=== PATIENT | female | born 1950 | race Caucasian/White ===

== ENCOUNTER 2023-07-13 10:11 | Inpatient (IN) ==
[2023-07-13 11:09] LABS: Basophils # (auto) 0.07 K/uL (0.00-0.20); Basophils % (auto) 1.3 %; Eosinophils # (auto) 0.21 K/uL (0.00-0.50); Eosinophils % (auto) 3.9 %; Hematocrit (blood only) 43.6 % (37.0-47.0); Hemoglobin 14.7 g/dl (12.0-16.0); Immature Granulocytes # (auto) 0.02 K/uL (0.01-0.20); Immature Granulocytes % (auto) 0.4 %; Lymphocytes # (auto) 1.18 K/uL (1.20-3.40); Mean Corpuscular Hemoglobin 31.3 pg (25.0-34.0); Mean Corpuscular Hgb Conc 33.7 g/dL (32.0-36.0); Mean Corpuscular Volume 92.8 fL (80.0-100.0); Mean Platelet Volume 8.9 fL (9.4-12.4); Monocytes % (auto) 11.2 %; Neutrophils # (auto) 3.29 K/uL (1.40-6.50); Neutrophils % (auto) 61.2 %; Platelet Count 249 K/uL (130-400); RDW Standard Deviation 40.8 fL (36.4-46.3); White Blood Count 5.37 K/ul (4.8-10.8)
--- NOTE | 2023-07-13 11:13 | XRay Report ---
XR chest 1V portable HISTORY: Chest pain, nonspecific COMPARISON: Chest 11/30/2017. FINDINGS: The lungs are clear. The cardiac silhouette is top normal in size. No pleural effusions. No pneumothorax. No evidence for pulmonary edema. No acute fractures. Calcifications within the aortic knob. There is an old distal right clavicle fracture noted. IMPRESSION: No acute process. ACT 112: Negative or not required by law. Electronically signed by: Fernando Rhoades M.D. 07/13/2023 11:11 AM
--- NOTE | 2023-07-13 11:22 | Emergency Department Note ---
Impression & Plan Radicular pain of left upper extremity, Hypertension, Elevated blood pressure reading, CKD (chronic kidney disease) ED Provider Note NAME: DENISE PERDOMO AGE: 73 SEX: F : 1950 ARRIVES VIA: Walk-In INFORMANT: Patient ED PROVIDER(S): Ye Clifton DO CHIEF COMPLAINT: left shoulder and arm pain HPI: Patient is a 73-year-old female with a past medical history of CKD, asthma and hypertension that presents to the ER for left neck pain which radiates down into the left shoulder and left arm. It radiates to the second and third digits on the left hand. She denies any weakness or numbness. No headache or change in vision. Pain does radiate from the shoulder to the anterior chest wall. This has all been present for the past week. It did worsen today. She was referred in by [facility]. No dysuria, urgency, or frequency. No shortness of breath. No other exacerbating or remitting factors. ADDITIONAL HISTORY OBTAINED: Per HPI Chronic Medical/Social Conditions Affecting Care: Per HPI PAST MEDICAL HISTORY:See Below PAST SURGICAL HISTORY:See Below FAMILY HISTORY:See Below SOCIAL HISTORY:See Below HOME MEDICATIONS:See Below ALLERGIES:See Below VITALS:See Below PHYSICAL EXAMINATION: GENERAL: Sitting up in bed, alert, well appearing, well nourished, no distress, non-toxic EYE EXAM: normal conjunctiva. PERRL and EOM's intact. OROPHARYNX: no exudate, no erythema, lips, buccal mucosa, and tongue normal and mucous membranes are moist NECK: supple, no nuchal rigidity, no adenopathy, no midline tenderness but paraspinal tenderness in the lower left cervical region tracking through the trapezius into the humeral head LUNGS: Clear to auscultation. Normal chest wall mechanics HEART: no murmurs, S1 normal and S2 normal ABDOMEN: abdomen soft, non-tender, normo-active bowel sounds, no masses, no rebound or guarding. BACK: Back is symmetrical on inspection and there is no deformity, no midline tenderness, no CVA tenderness. SKIN: no rashes and no bruising UPPER EXTREMITIES: Flexion-extension bilateral shoulders elbows wrist and grasp 5 out of 5 bilaterally. Pronation supination of the left upper extremity as well as abduction of the digits 5 out of 5. Radial pulse 2 out of 4. LOWER EXTREMITIES: No pitting edema. NEURO EXAM: Normal sensorium, cranial nerves II-XII intact, normal speech, no weakness of arms, no weakness of legs. No drift. Finger to nose intact. Gross sensation intact. MEDICAL DECISION MAKING: Patient is a 73-year-old female who presents ER with past medical history of asthma, and hypertension for left arm and neck pain. On exam clinically consistent with radiculopathy. Labs showed no significant leukocytosis or anemia. BMP along with LFTs bilirubin and lipase was unremarkable. Troponin was negative with symptoms that been present for greater than 8 hours not negative ACS. Neurovascular intact in the extremity. Chest x-ray was clean. Showed a normal aorta. CT of the cervical spine was unremarkable. Patient was given a dose of morphine and Toradol and steroids. She had nearly complete resolution of her pain. Pressures remain significantly elevated and continued to trend up into the low 200s. I do not feel this consistent with pain and she notes that she essentially has no pain at this time. She feels significantly better. Chest x-ray was reviewed and showed no enlarged mediastinum. She was updated bedside. Discussed with the . Patient will be monitored overnight for the significant hypertension of unclear etiology at this time. She notes she does not take any medications for it. Consults/Care Managements Discussions: Per [facility] Triage Nursing notes reviewed. Limited review of prior medical records performed Vital Signs: reviewed and remarkable for HTN Differential diagnosis: Cardiac ischemia, aortic dissection, pulmonary embolism, pneumothorax, pneumonia, pericarditis, myocarditis, esophageal rupture, GERD, cholecystitis, pancreatitis, musculoskeletal, as well as other pathologies. ER treatment provided: See below Diagnostics interpreted by me include EKG and cardiac monitoring as listed below: -Cardiac Monitoring: An order was placed for continuous cardiac monitoring. The monitor shows a rate of 72 with sinus rhythm. -ECG: Sinus rhythm rate of 70 Left axis Septal Q waves PVC QTc 434 No significant change from previous. -Laboratory studies:Interpreted by me as stated above in MDM and shown below. Imaging studies: Xrays: As interpreted by me: Portable AP upright 1 view of the chest shows no focal infiltrate CTs show: CT of the cervical spine shows no acute pathology Procedures:none Critical Care: None Past Med/Surg History Medical History (Updated 07/13/23 @ 13:56 by Ye Clifton DO) CKD (chronic kidney disease), stage III Asthma Surgical History (Updated 07/13/23 @ 13:52 by Ciara Garcia PA-C) History of colonoscopy History of tubal ligation Family History (Updated 07/13/23 @ 13:52 by Ciara Garcia PA-C) Other Cancer Social History Smoking Status: Never smoker Hx Substance Use: No Preferred Language: Kazakh Feels Safe at Home: Yes Allergies Allergies Allergy/AdvReac Type Severity Reaction Status Date / Time Penicillins Allergy Unknown CHILDHOOD Unverified 11/30/17 09:45 ALLERGY Home Meds Home Medications Medication Instructions Recorded Confirmed albuterol sulfate 90 mcg/actuation 2 puff inhalation Q4H PRN 07/13/23 07/13/23 aerosol inhaler Shortness Of Breath Or Wheezing budesonide-formoterol HFA 160 2 inh inhalation BID 07/13/23 07/13/23 mcg-4.5 mcg/actuation aerosol inhaler (Symbicort) calcium carbonate 500 mg-vitamin 1 tab PO DAILY 07/13/23 07/13/23 D3 10 mcg (400 unit) tablet (Calcium 500 + D) montelukast 10 mg tablet 10 mg PO DAILY 07/13/23 07/13/23 multivitamin 1 tab PO DAILY 07/13/23 07/13/23 Results & Data (ED) Vital Signs Vital Signs - 24 hr 07/13/23 10:16 07/13/23 10:35 07/13/23 11:00 Temperature 36.6 C Temperature Source Temporal Artery Scan Pulse Rate 72 62 Pulse Rhythm Respiratory Rate 16 15 Respiratory Effort / Characteristics Non-Labored Spontaneous Respiratory Depth Normal Respiratory Pattern Regular Blood Pressure 151/84 H 190/86 H Blood Pressure Mean 106 131 Pulse Oximetry 97 98 96 Oxygen Delivery Method Room Air Room Air Room Air Sepsis Recent Fever Within 48 Hours No Sepsis New/Unexplained Change in Mental Status No Sepsis Action Taken by Nursing No Action Required 07/13/23 11:08 07/13/23 11:57 07/13/23 12:00 Temperature Temperature Source Pulse Rate 70 54 L 61 Pulse Rhythm Regular Respiratory Rate 12 16 Respiratory Effort / Characteristics Respiratory Depth Respiratory Pattern Blood Pressure 201/93 H Blood Pressure Mean 131 Pulse Oximetry 96 97 Oxygen Delivery Method Room Air Sepsis Recent Fever Within 48 Hours Sepsis New/Unexplained Change in Mental Status Sepsis Action Taken by Nursing 07/13/23 12:20 07/13/23 12:45 07/13/23 13:01 Temperature Temperature Source Pulse Rate 60 61 66 Pulse Rhythm Respiratory Rate 12 15 17 Respiratory Effort / Characteristics Respiratory Depth Respiratory Pattern Blood Pressure 190/88 H 163/69 H 169/56 H Blood Pressure Mean 122 124 121 Pulse Oximetry 97 97 97 Oxygen Delivery Method Sepsis Recent Fever Within 48 Hours Sepsis New/Unexplained Change in Mental Status Sepsis Action Taken by Nursing 07/13/23 13:15 Temperature Temperature Source Pulse Rate 77 Pulse Rhythm Respiratory Rate 17 Respiratory Effort / Characteristics Respiratory Depth Respiratory Pattern Blood Pressure 163/69 H Blood Pressure Mean 118 Pulse Oximetry 96 Oxygen Delivery Method Sepsis Recent Fever Within 48 Hours Sepsis New/Unexplained Change in Mental Status Sepsis Action Taken by Nursing Laboratory Data 07/13/23 10:42 07/13/23 10:42 Lab Results 07/13/23 Range/Units 10:42 WBC 5.37 (4.8-10.8) K/ul RBC 4.70 (4.20-5.40) M/uL Hgb 14.7 (12.0-16.0) g/dl Hct 43.6 (37.0-47.0) % MCV 92.8 (80.0-100.0) fL MCH 31.3 (25.0-34.0) pg MCHC 33.7 (32.0-36.0) g/dL RDW Std Deviation 40.8 (36.4-46.3) fL RDW Coeff of Tati 12.0 (11.5-14.5) % Plt Count 249 (130-400) K/uL MPV 8.9 L (9.4-12.4) fL Immature Gran % (Auto) 0.4 % Neut % (Auto) 61.2 % Lymph % (Auto) 22.0 % Bent % (Auto) 11.2 % Eos % (Auto) 3.9 % Baso % (Auto) 1.3 % Neut # (Auto) 3.29 (1.40-6.50) K/uL Lymph # (Auto) 1.18 L (1.20-3.40) K/uL Bent # (Auto) 0.60 H (0.11-0.59) K/uL Eos # (Auto) 0.21 (0.00-0.50) K/uL Baso # (Auto) 0.07 (0.00-0.20) K/uL Immature Gran # (Auto) 0.02 (0.01-0.20) K/uL Sodium 139 (136-145) mmol/L Potassium 3.9 (3.5-5.1) mmol/L Chloride 104 (98-107) mmol/L Carbon Dioxide 29 (21-32) mmol/L Anion Gap 6 (3-11) BUN 15 (6-23) mg/dl Creatinine 1.36 H (0.6-1.2) mg/dl Est Cr Clr Drug Dosing 32.2 ml/min Est GFR ( Amer) 44.0 ml/min Est GFR (Non-Af Amer) 38.0 ml/min BUN/Creatinine Ratio 11.0 (10-20) Glucose 124 H (70-99(Fasting)) mg/dl Calcium 9.8 (8.6-10.3) mg/dl Total Bilirubin 0.7 (0.2-1.0) mg/dl AST 23 (13-39) U/L ALT 16 (7-52) U/L Alkaline Phosphatase 40 (34-104) U/L Troponin I High Sens 7.5 (0-14) pg/ml Total Protein 7.4 (6.0-8.3) gm/dl Albumin 4.3 (3.4-5.0) gm/dl Globulin 3.1 (2.5-4.0) gm/dl Albumin/Globulin Ratio 1.4 (0.9-2) Lipase 24 (11-82) U/L Administered Medications Discontinued Medications Dexamethasone Sodium Phosphate (DexamethasonePf 10 Mg/Ml Vial) 10 mg IV NOW ONE Stop: 07/13/23 12:03 Last Admin: 07/13/23 12:16 Dose: 10 mg Documented By: FAUSTO Hydralazine HCl (Hydralazine Hcl 20 Mg/Ml Vial) 10 mg IV NOW STA Stop: 07/13/23 12:21 Last Admin: 07/13/23 12:29 Dose: 10 mg Documented By: RENÉE Sodium Chloride (Nss) 500 mls @ 999 mls/hr IV .Q31M ONE Stop: 07/13/23 11:48 Last Infusion: 07/13/23 11:58 Dose: Infused Documented By: Admin: 07/13/23 11:24 Dose: 999 mls/hr Documented By: RENÉE Ketorolac Tromethamine (Ketorolac Tromethamine 15 Mg/Ml Vial) 10 mg IV NOW ONE Stop: 07/13/23 11:19 Last Admin: 07/13/23 11:25 Dose: 10 mg Documented By: RENÉE Morphine Sulfate (Morphine Sulfate 2 Mg/Ml Carp) 2 mg IV NOW STA Stop: 07/13/23 11:19 Last Admin: 07/13/23 11:25 Dose: 2 mg Documented By: RENÉE Ondansetron HCl (Ondansetron Inj 2 Mg/Ml 2 Ml Vial) 4 mg IV NOW STA Stop: 07/13/23 11:19 Last Admin: 07/13/23 11:25 Dose: 4 mg Documented By: RENÉE Imaging Data Radiologist's Impression: Cervical Spine CT 07/13/23 10:53 CT cervical spine wo con CT DOSE: 413.68 mGy.cm CLINICAL HISTORY: 73 years-old Female with neck pain. Acute neck pain without reported trauma COMPARISON: None. TECHNIQUE: Multiple axial CT images of the cervical spine were obtained without contrast. A dose lowering technique was utilized adhering to the principles of ALARA. FINDINGS: Limited evaluation of the central canal and neural foramina by CT technique. No high-grade central canal stenosis. Degenerative changes include mild to moderate disc space narrowing at C6-C7. 4 mm anterolisthesis C7 on T1, likely secondary to severe facet arthrosis at this level. Moderate to severe degeneration at C1-C2. No acute fracture or subluxation. Multilevel neural foraminal narrowing is at least mild. The cervical soft tissues appear unremarkable. Biapical pleural-parenchymal scarring. No pneumothorax. IMPRESSION: No acute cervical spine fracture or subluxation. ACT 112: Negative or not required by law. The above report was generated using voice recognition software. It may contain grammatical, syntax or spelling errors. Electronically signed by: Glenn Navarro M.D. 07/13/2023 11:49 AM Chest X-Ray 07/13/23 10:53 XR chest 1V portable HISTORY: Chest pain, nonspecific COMPARISON: Chest 11/30/2017. FINDINGS: The lungs are clear. The cardiac silhouette is top normal in size. No pleural effusions. No pneumothorax. No evidence for pulmonary edema. No acute fractures. Calcifications within the aortic knob. There is an old distal right clavicle fracture noted. IMPRESSION: No acute process. ACT 112: Negative or not required by law. Electronically signed by: Fernando Rhoades M.D. 07/13/2023 11:11 AM Discharge Plan Visit Data Chief Complaint: Arm Pain Stated Complaint: LEFT ARM PAIN, NAUSEA, REF BY [facility] ED Provider: Ye Clifton Discharge Problem: Radicular pain of left upper extremity, Hypertension, Elevated blood pressure reading, CKD (chronic kidney disease) Forms Stand Alone Forms: My [facility] goCatch Prescriptions Prescriptions: No Action montelukast 10 mg tablet 10 mg PO DAILY albuterol sulfate 90 mcg/actuation HFA aerosol inhaler 2 puff INHALATION Q4H PRN (Reason: Shortness Of Breath Or Wheezing) budesonide-formoterol [Symbicort] 160-4.5 mcg/actuation HFA aerosol inhaler 2 inh INHALATION BID multivitamin Tablet 1 tab PO DAILY calcium carbonate-vitamin D3 [Calcium 500 + D] 500 mg-10 mcg (400 unit) Tablet 1 tab PO DAILY Referrals Referrals: Saiad Maravilla MD [Primary Care Provider] - Discharge Problem: Hypertension Qualifiers: Hypertension type: unspecified Qualified Code(s): I10 - Essential (primary) hypertension CKD (chronic kidney disease) Qualifiers: Chronic kidney disease stage: unspecified stage Qualified Code(s): N18.9 - Chronic kidney disease, unspecified
[2023-07-13] MEDS: SODIUM CHLORIDE 0.9% 500 ML IV ONE (11:24)
[2023-07-13] MEDS: ONDANSETRON INJ 2 MG/ML 2 ML VIAL IV STA (11:25)
[2023-07-13] MEDS: KETOROLAC TROMETHAMINE 15 MG/ML VIAL IV ONE (11:25)
[2023-07-13] MEDS: MoRPHine SULFATE 2 MG/ML CARP IV STA (11:25)
[2023-07-13 11:26] LABS: Albumin Globulin Ratio 1.4 (0.9-2); Albumin Level 4.3 gm/dl (3.4-5.0); Bilirubin,Total 0.7 mg/dl (0.2-1.0); Calcium 9.8 mg/dl (8.6-10.3); Creatinine Clr Calc Pharmacy 32.2 ml/min; Globulin 3.1 gm/dl (2.5-4.0); Potassium 3.9 mmol/L (3.5-5.1); Total Protein 7.4 gm/dl (6.0-8.3)
[2023-07-13 11:32] LABS: Troponin I High Sensitivity 7.5 pg/ml (0-14)
--- NOTE | 2023-07-13 11:51 | CT Scan Report ---
CT cervical spine wo con CT DOSE: 413.68 mGy.cm CLINICAL HISTORY: 73 years-old Female with neck pain. Acute neck pain without reported trauma COMPARISON: None. TECHNIQUE: Multiple axial CT images of the cervical spine were obtained without contrast. A dose low ering technique was utilized adhering to the principles of ALARA. FINDINGS: Limited evaluation of the central canal and neural foramina by CT technique. No high-grade central canal stenosis. Degenerative changes include mild to moderate disc space narrowing at C6-C7. 4 mm anterolisthesis C7 on T1, likely secondary to severe facet arthrosis at this level. Moderate to severe degeneration at C1-C2. No acute fracture or subluxation. Multilevel neural foraminal narrowing is at least mild. The cervical soft tissues appear unremarkable. Biapical pleural-parenchymal scarring. No pneumothora x. IMPRESSION: No acute cervical spine fracture or subluxation. ACT 112: Negative or not required by law. The above report was generated using voice recognition software. It may contain grammatical, syntax o r spelling errors. Electronically signed by: Glenn Navarro M.D. 07/13/2023 11:49 AM
[2023-07-13] MEDS: dexAMETHasone**PF** 10 MG/ML VIAL IV ONE (12:16)
[2023-07-13] MEDS: hydrALAZINE HCL 20 MG/ML VIAL IV STA (12:29)
--- NOTE | 2023-07-13 12:47 | History & Physical Report ---
Date of Service July 13, 2023 Assessment & Plan (1) Neck pain: (2) Radicular pain of left upper extremity: Plan: Patient is 73-year-old female with PMH asthma, CKD III, lumbar spinal stenosis presented to ER with complaint of left arm pain x [address] C-Spine [address]: No high-grade central canal stenosis. Degenerative changes include mild to moderate disc space narrowing at C6-C7. 4 mm anterolisthesis C7 on T1, likely secondary to severe facet arthrosis at this level. Moderate to severe degeneration at C1-C2. No acute fracture or subluxation. Multilevel neural foraminal narrowing is at least mild. CXR: no acute infiltrate EKG without acute ST elevations. Normal troponin. In ER received dexamethasone 10mg IV, IV Toradol, morphine 2mg Patient now rates pain 1 out of 10 on pain scale Suspect neck and left upper extremity radiculopathy secondary to DDD May need to consider MRI C-spine, possibly could be done outpatient Patient already established with neurosurgery [facility] and currently following up with [facility] pain management for lumbar pain and radiculopathy and is scheduled for lumbar injection 08/01/2023 Scheduled Tylenol, oxycodone and morphine as needed pain CBC, BMP in a.m. (3) Elevated blood pressure reading: Plan: BP elevated in ER 151/84, 201/93 No prior diagnosis HTN ?secondary to underlying pain In ER given pain medicine as above and hydralazine 10mg IV Patient now rates pain 1/10 on pain scale. Her repeat BP 163/69 Monitor BP Pain control as above and prn hydralazine If BP continues to be elevated may need to consider further workup and further BP med control (4) CKD (chronic kidney disease), stage III: Plan: Cr: 1.36. Baseline 1.2-1.3 per outpatient chart review Monitor renal functions Will avoid NSAIDs (5) Asthma: Plan: No signs exacerbation Continue home inhalers and montelukast DVT Prophylaxis Lovenox SQ Full Code as per discussion with pt Follows with Dr Maravilla for routine care Pt was seen and care coordinated with Dr Chino. See addendum I spent a total of 75 minutes reviewing notes, outpatient records, labs, medication, coordinating, documenting and providing care for this patient excluding time spent in the performance of separately billed services. History of Present Illness Chief Complaint: neck and arm pain Primary Care Provider: Saida Maravilla MD Patient is 73-year-old female with PMH asthma, CKD III, lumbar spinal stenosis presented to ER with complaint of left arm pain x 6 days. States woke up Sunday with pain to left shoulder radiating to left arm. The following day symptoms mostly resolved. States Sunday did strength training and walked eight miles and pain returned and has worsened past 4 days. Reports pain to left posterior neck and radiates to left shoulder, left arm and left fingers. Also with paresthesias radiating down left arm into 2nd and 3rd fingers. Denies any pain to chest or SOB. Denies history fall or known trauma. History lumbar radiculopathy, spinal stenosis and had Lumbar MRI spine and saw neurosurgery who recommended conservative measures initially with PT, and had appointment with pain management and is to have lumbar steroid injection 08/01/23. She reports her lumbar back pain has almost resolved and is not currently bothering her. Denies fever/chills, diaphoresis, N/V/D/C, DOWELL, dizziness, syncope, vision changes, CP, SOB, orthopnea, palpitations, cough, sore throat, otalgia, rhinorrhea, abdominal pain, extremity weakness, extremity edema, rashes, urinary symptoms. Allergies Allergy/AdvReac Type Severity Reaction Status Date / Time Penicillins Allergy Unknown CHILDHOOD Unverified 11/30/17 09:45 ALLERGY Home Medications Medication Instructions Recorded Confirmed Type albuterol sulfate 90 mcg/actuation 2 puff inhalation Q4H PRN 07/13/23 07/13/23 History aerosol inhaler Shortness Of Breath Or Wheezing budesonide-formoterol HFA 160 2 inh inhalation BID 07/13/23 07/13/23 History mcg-4.5 mcg/actuation aerosol inhaler (Symbicort) calcium carbonate 500 mg-vitamin 1 tab PO DAILY 07/13/23 07/13/23 History D3 10 mcg (400 unit) tablet (Calcium 500 + D) montelukast 10 mg tablet 10 mg PO DAILY 07/13/23 07/13/23 History multivitamin 1 tab PO DAILY 07/13/23 07/13/23 History Past Med/Surg History Medical History CKD (chronic kidney disease), stage III Asthma Surgical History History of colonoscopy History of tubal ligation Family History Other Cancer Social History Smoking Status: Never smoker Hx Alcohol Use: No (quit in March) Hx Substance Use: No Preferred Language: Spanish Communication Ability: Effective Machine Umbrella Tipper Required: No Beliefs That Will Affect Care: None Current Living Situation: Spouse Other Information That Helps Us Care for You: No Feels Safe at Home: Yes Safety Concerns: Feels Safe At This Time Assistive Devices: None Review of Systems Review of Systems: All systems reviewed & are unremarkable except as noted in HPI & below Physical Exam Physical Exam: General: no distress, WDWN Head: normocephalic, atraumatic Eyes: conjunctiva non-injected, anicteric ENT: normal inspection external ears, nose, mucous membranes moist Neck: supple, trachea midline, No current tenderness to palpation, patient points to lower cervical spinous processes and trapezius musculature at site of prior pain Lungs: clear, no respiratory distress, no wheezing/rhonchi/rales CV: RRR, no murmur, no JVD, no pretibial edema Abd: normal BS, soft, non-tender Ext: no cyanosis, no calf tenderness, LUE: normal appearance, non-tender to palpation, ROM intact, distal pulses intact, brisk capillary refill, sensation to light touch intact, strength 5/5 Neuro: A&O x 3, no focal deficits noted, normal affect Skin: warm, dry Results & Data Results & Data Vital Signs (Past 12 Hours) Vital Signs Temp Pulse Resp BP Pulse Ox O2 Del Method 07/13/23 11:57 54 L 07/13/23 11:08 70 12 96 Room Air 07/13/23 11:00 62 15 190/86 H 96 Room Air 07/13/23 10:35 98 Room Air 07/13/23 10:16 36.6 C 72 16 151/84 H 97 Room Air Laboratory Results Short CBC 07/13/23 Range/Units 10:42 WBC 5.37 (4.8-10.8) K/ul Hgb 14.7 (12.0-16.0) g/dl Hct 43.6 (37.0-47.0) % Plt Count 249 (130-400) K/uL BMP 07/13/23 10:42 Sodium 139 Potassium 3.9 Chloride 104 Carbon Dioxide 29 BUN 15 Creatinine 1.36 H Glucose 124 H Calcium 9.8 Liver Function 07/13/23 Range/Units 10:42 Total Bilirubin 0.7 (0.2-1.0) mg/dl AST 23 (13-39) U/L ALT 16 (7-52) U/L Alkaline Phosphatase 40 (34-104) U/L Albumin 4.3 (3.4-5.0) gm/dl Diagnostic Findings Cervical Spine CT 07/13/23 10:53 CT cervical spine wo con CT DOSE: 413.68 mGy.cm CLINICAL HISTORY: 73 years-old Female with neck pain. Acute neck pain without reported trauma COMPARISON: None. TECHNIQUE: Multiple axial CT images of the cervical spine were obtained without contrast. A dose lowering technique was utilized adhering to the principles of ALARA. FINDINGS: Limited evaluation of the central canal and neural foramina by CT technique. No high-grade central canal stenosis. Degenerative changes include mild to moderate disc space narrowing at C6-C7. 4 mm anterolisthesis C7 on T1, likely secondary to severe facet arthrosis at this level. Moderate to severe degeneration at C1-C2. No acute fracture or subluxation. Multilevel neural foraminal narrowing is at least mild. The cervical soft tissues appear unremarkable. Biapical pleural-parenchymal scarring. No pneumothorax. IMPRESSION: No acute cervical spine fracture or subluxation. ACT 112: Negative or not required by law. The above report was generated using voice recognition software. It may contain grammatical, syntax or spelling errors. Electronically signed by: Glenn Navarro M.D. 07/13/2023 11:49 AM Chest X-Ray 07/13/23 10:53 XR chest 1V portable HISTORY: Chest pain, nonspecific COMPARISON: Chest 11/30/2017. FINDINGS: The lungs are clear. The cardiac silhouette is top normal in size. No pleural effusions. No pneumothorax. No evidence for pulmonary edema. No acute fractures. Calcifications within the aortic knob. There is an old distal right clavicle fracture noted. IMPRESSION: No acute process. ACT 112: Negative or not required by law. Electronically signed by: Fernando Rhoades M.D. 07/13/2023 11:11 AM Supervising Physician Co-Signing Physician Notes Pt seen and examined by me, care coordinated w/ Brenna Garcia PA-C, pls refer to her note above for further detail. Pt is a 73 you F w/ asthma, CKD III, lumbar spinal stenosis who presents with complaint of left arm pain for several days. Pain starting at her left neck radiating to left shoulder and down her arm to 2nd and 3rd digits. Denies any chest pain, shortness of breath, palpitations, dizziness. CT cervical spine obtained in the ED - No high-grade central canal stenosis. Degenerative changes include mild to moderate disc space narrowing at C6-C7. 4 mm anterolisthesis C7 on T1, likely secondary to severe facet arthrosis at this level. Moderate to severe degeneration at C1-C2. No acute fracture or subluxation. Multilevel neural foraminal narrowing is at least mild. Also pt found hypertensive in the ED which she states is unusual. Received, toradol, morphine, decadron in ED also received hydralazine for BP. Currently she feels fairly comfortable and denies any significant pain. She is awake, alert, answers appropriately. Lungs are CTAB, heart sounds regular, abdomen is soft and nontender, + bowel sounds. There is minimal ankle edema present and pt is able to move extremities. She has minimal tenderness to palpation at left cervical spine. Will continue with pain management, will try to avoid NSAIDs given hx of CKD. Will monitor BP and will provide hydralazine prn. If BP persistently elevated despite adequate pain control, further work-up recommended. MD Matti
[2023-07-13] MEDS ORDERED: MoRPHine SULFATE 2 MG/ML CARP IV PRN (14:50)
[2023-07-13] MEDS ORDERED: hydrALAZINE HCL 20 MG/ML VIAL IV PRN (14:50)
[2023-07-13] MEDS ORDERED: ALBUTEROL HFA 8 GM INHALER INH PRN (14:50)
[2023-07-13] MEDS ORDERED: ONDANSETRON INJ 2 MG/ML 2 ML VIAL IV PRN (14:50)
[2023-07-13] MEDS ORDERED: POLYETHYLENE (MIRALAX) 17 GM PACK PO PRN (14:50)
[2023-07-13] MEDS ORDERED: oxyCODONE HCL IR 5 MG TAB (IMMEDIATE RELEASE) PO PRN (14:50)
[2023-07-13] MEDS: MONTELUKAST SODIUM 10 MG TABLET PO SCH (17:05)
[2023-07-13] MEDS: FLUTICASONE/VILANTEROL 200/25MCG 14 PUFFS/INHALER INH SCH (17:06)
[2023-07-13] MEDS: ENOXAPARIN INJ 40 MG/0.4 ML SYR SQ SCH (17:12)
[2023-07-13] MEDS: ACETAMINOPHEN 500 MG TAB PO SCH (22:36)
[2023-07-13 23:17] LABS: Appearance Urine Clear (Clear); Bacteria Urine Automated 4+ (None Seen); Bilirubin Urine Negative (Negative); Blood Urine Negative (Negative); Color Urine Yellow; Glucose Urine UA Negative (Negative); Ketones Urine 1+ (Negative); Leukocyte Esterase Urine Trace (Negative); Nitrite Urine Positive (Negative); Protein Urine Negative (Negative); RBC Urine Automated 0-2 /hpf (0-2); Urobilinogen Urine Negative (Negative); WBC Urine Automated 0-5 /hpf (0-5)
--- NOTE | 2023-07-14 00:23 | Electrocardiogram Report ---
Test Reason : Blood Pressure : / mmHG Vent. Rate : 070 BPM Atrial Rate : 070 BPM P-R Int : 170 ms QRS Dur : 066 ms QT Int : 402 ms P-R-T Axes : 067 -36 036 degrees QTc Int : 434 ms Sinus rhythm with occasional Premature ventricular complexes Left axis deviation Septal infarct (cited on or before 30-NOV-2017) Abnormal ECG When compared with ECG of 30-NOV-2017 12:22, Premature ventricular complexes are now Present Nonspecific T wave abnormality, improved in Lateral leads Confirmed by Fredo Naik ([id number]) on 07/14/2023 12:23:03 AM Referred By: Confirmed By:Fredo Naik
--- OUTSIDE RECORDS SUMMARY | 2023-07-14 04:32 | External Medical Summary | Summary of Care ---
Author Name Unknown Organization [facility] Address [address] [place] [address] Phone [phone] Care Team Providers Care Shipping Specialist Name Role Phone Saida Maravilla MD Primary Care Provider + Reason for Visit * Reason Onset Date Comments Test Results 06/12/2023 Encounter Details Date Type Department Care Team (Late st Contact Info) Description 06/12/2023 Telephone General Internal Medicine [facility] [place] [address] [facility] [place] [address] Saida Maravilla MD [address] [place] [address] Test Results Allergies Active Allergy Reactions Criticality Noted Date Comments Penicillins 01/17/2008 Rash documented as of this encounter (statuses as of 06/14/2023) Medications Medication Sig Dispensed Refills Start Date End Date Status MULTIVITAMINS PO CAPS one pill each day 0 Active GLUCOSAMINE CHONDR 500 COMPLEX PO CAPS one pill each day 0 Active CALCIUM 500 MG PO TABS one pill each day 0 Active Coenzyme Q10 200 MG Capsule Take 1 Capsule by mouth in the morning. 0 12/06/2017 Active zoster vac recomb adjuvanted (SHINGRIX) 50 MCG/0.5ML injectionIndicatio ns:Need for shingles vaccine Inject 0.5 mL into a large muscle now and repeat dose in 60 to 180 days. Please fax date this was given to our office. 1 Each 1 06/10/2019 Active Montelukast Sodium 10 MG Oral Tablet (Singulair)Indicat ions:Asthma, allergic TAKE 1 TABLET DAILY 90 Tablet 3 11/07/2022 Active Metamucil Fiber Oral Tablet Chewable Take 5 Tablets by mouth in the morning. 0 Active Albuterol Sulfate HFA 108 (90 Base) MCG/ACT Inhalation Aerosol SolutionIndication s:Asthma in remission Inhale 2 Puffs by mouth every 4 hours as needed for Wheezing. 54 g 1 01/09/2023 Active Budesonide-Formote rol Fumarate 160-4.5 MCG/ACT Inhalation Aerosol (Symbicort)Indicat ions:Asthma in remission USE 2 INHALATIONS TWICE A DAY 30.6 g 1 02/16/2023 Active Docusate Sodium 50 MG Oral Capsule (Colace) Take 2 Capsules by mouth at bedtime. 0 Active Gabapentin 100 MG Oral Capsule (Neurontin) One pill at bedtime for 5 days then 2 pills at bedtime for 5 days then continue 3 pills at bedtime. 90 Capsule 5 04/12/2023 Active documented as of this encounter (statuses as of 06/14/2023) Active Problems Problem Noted Date Diagnosed Date Stage 3a chronic kidney disease 2020 Overview: Per CKD protocol Asthma in remission 06/10/2019 Hx of nonmelanoma skin cancer 03/15/2018 Overview: SCCIS R uatsdin near lateral brow 03/2018 Hx of actinic keratosis 11/03/2011 Allergic rhinitis Menopause documented as of this encounter (statuses as of 06/14/2023) Resolved Problems Problem Noted Date Diagnosed Date Resolved Date Encounter for examination fo r normal comparison and control in clinical research program 05/31/2017 11/03/2019 Overview: DO NOT DELETE [facility] DETECT Study: Project # [id number], Carpenter Packing: Marin Wise, PhD. SUMMARY: Goal: Establish test characteristics (sensitivity, specificity, PPV, NPV) of a circulating tumor DNA (ctDNA)-based test for cancer. Hypothesis: Circulating tumor DNA (ctDNA) and elevated protein biomarkers (together, the marker panel) can be detected in asymptomatic individuals with early cancer. Specific Aim 1: Determine the prevalence of a positive marker panel test in a prospective clinical cohort of 10,000 asymptomatic women ages 65 to 75 years. Specific Aim 2: Determine the sensitivity, specificity, positive predictive value (PPV) and negative predictive value (NPV) of a marker panel test to identify histologically proven cancers that develop within 5-years of the marker panel evaluation. CONTACTS: During normal business hours, contact study staff at ; after hours Carpenter Packing via the [facility] bender machine operator . Please contact study team before resolving/deleting from patients problem list. Study phone number: [phone]. Diagnosis changed due to Research Module. Go to Sn[employer] for study details. Encounter for examination fo r normal comparison and control in clinical research program 05/31/2017 12/01/2021 Overview: DO NOT DELETE - [facility] Study: Project # [id number], Carpenter Packing: Russ Sanders, MS, MPH. SUMMARY: Goal: Establish test characteristics (sensitivity, specificity, PPV, NPV) of a circulating tumor DNA (ctDNA)-based test for cancer. - Hypothesis: Circulating tumor DNA (ctDNA) and elevated protein biomarkers (together, the marker panel) can be detected in asymptomatic individuals with early cancer. - Specific Aim 1: Determine the prevalence of a positive marker panel test in a prospective clinical cohort of 10,000 asymptomatic women ages 65 to 75 years. - Specific Aim 2: Determine the sensitivity, specificity, positive predictive value (PPV) and negative predictive value (NPV) of a marker panel test to identify histologically proven cancers that develop within 5-years of the marker panel evaluation. - CONTACTS: During normal business hours, contact study staff at ; after hours Carpenter Packing via the [facility] bender machine operator . - Please contact study team before resolving/deleting from patients problem list. Study phone number: [phone]. Diagnosis changed due to Research Module. Go to [employer] for study details. Kidney disease, chronic, sta ge III (GFR 30-59 ml/min) 01/10/2016 02/12/2020 Overview: Per CKD protocol #1 Status asthmaticus 4 documented as of this encounter (statuses as of 06/14/2023) Immunizations Name Administration Dates Next Due COVID-19 mRNA, LNP-s, No Pre serve, 2-Dose Series (Moderna) 06/01/2020,04/27/2020 DTaP Dipth/Tet/Acell Pertussis (Infanrix), Peds 10/31/2008 HEP A - Hepatitis A (Adult > 18 yrs) 08/24/2009 Pneumococcal Conjugate Vacc, 13 Valent (Prevnar) 08/05/2015 Pneumococcal Polysaccharide PPV23 (Pneumovax) 08/10/2016 Season Influenza, Quad, PF, Adjuvanted, 65+ Yrs, IM (FLUAD) 01/15/2020 Seasonal Influenza, PF, 6 M & above, IM , (FluLaval or Fluzone) 12/06/2017,02/14/2017 02/14/2018 Seasonal Influenza, Split, I IV3, With Preserve, Inj 02/06/2012,01/31/2011,01/31/2010,12/31 Seasonal Influenza, Trivalen t, Adjuvanted, 65+ yrs 01/13/2019 TDAP (age 10 and older)(Boostrix) 07/28/2020 TDAP (age 11 and older)(Adacel) 10/31/2008 documented as of this encounter Social History Tobacco Use Types Packs/Day Years Used Date Smoking Tobacco: Never Smokeless Tobacco: Never Alcohol Use Standard Drinks/Week Comments Yes 0 (1 standard drink = 0.6 oz pur e alcohol) wine with dinner nightly PHQ-2 Answer Date Recorded PHQ Adult Total Score 0 07/28/2020 Hunger Vital Sign Answer Date Recorded Worried About Running Out of Food in the Last Ye ar Never true 06/10/2019 Ran Out of Food in the Last Year Never true 06/10/2019 Sex and Gender Information Value Date Recorded Sex Assigned at Female 06/10/2019 10:49 AM EDT Gender Identity Female 06/10/2019 10:49 AM EDT Sexual Orientation Straight 06/10/2019 10 :49 AM EDT Job Start Date Occupation Industry Not on file Not on file Not on file documented as of this encounter Miscellaneous Notes * Telephone Encounter - Saida Maravilla MD - 06/14/2023 10:38 AM EDT I see pt is already scheduled for neurosurgery on 06/18/23. * Telephone Encounter - Bárbara Murdock MED ASSIST - 06/12/2023 2:19 PM EDT Patient aware and verbalized understanding. Pt states pain occurs more so at night when getting outof bed. Pain is sporadic Please assist with scheduling an appt with spine surgery * Telephone Encounter - Bárbara Murdock MED ASSIST - 06/12/2023 2:17 PM EDT ----- Message from Saida Maravilla MD sent at 06/12/2023 1:19 PM EDT ----- Recent MRI shows significant spinal stenosis and nerve root compression, more on rt side. . Pt needs to see spine surgery. Please find out how she is doing clinically. If severe s/s or acute weakness - needs ER eval any time. Referral is in. Please find how is the pain. documented in this encounter Plan of Treatment Upcoming Encounters Date Type Department Care Team (Late st Contact Info) Description 06/18/2023 8:30 AM EDT Office Visit Neurosurgery, [place] [address] [place] [address] Christopher Brooks MD [address] [place] [address] 08/07/2023 8:00 AM EDT Office Visit General Internal Medicine [facility] [address] [place] [address] Saida Maravilla MD [address] [place] [address] 08/09/2023 11:30 AM EDT Imaging Radiology [facility] [address] [facility] [place] [address] [facility] [place] [address] 11/01/2023 1:20 PM EDT Office Visit Dermatology [facility] [address] [place] [address] Essie Bryan PA-C [address] [place] [address] Scheduled Procedures Name Priority Associated Diagnoses Date/Ti me COLONOSCOPY FLEXIBLE PROXIMA L DIAGNOSTIC Recall History of colonic polyps Health Maintenance Due Date Last Done Comments Zoster Vaccines (1 of 2) 02/08/1998 Depression Screening 07/28/2021 07/28/2020 COVID-19 Vaccine (3 - 2022- season) 2022 06/01/2020, 04/27/2020 Influenza Vaccine (FLU shot) (#1) 2022 01/15/2020, 01/13/2019, 12/06/2017, Additional history exists Albumin/Creatinine Ratio 08/04/2023 023, 08/02/2021, 07/29/2020, Additional history exists CKD HGB USE SMARTSET 95572 08/04/202308/03, 08/02/2021, 07/29/2020, Additional history exists CKD PHOS USE SMARTSET 67957 08/04/2023 05/0 07/2022, 08/02/2021, 07/29/2020 GFR 10/11/2023 04/12/2023, 05/0 07/2022, 08/02/2021, Additional history exists DXA Scan 09/06/2026 09/06/2021, 08/31, 03/02/2008 COLONOSCOPY-EVERY 5 YRS AGES 18-100 01/10/2028 01/09/2023, 01/09/2023, 09/06/2017, Additional history exists DTaP,Tdap,and Td Vaccines (4 - Td or Tdap) 07/28/2030 07/28/2020, 10/31/2008, 10/31/2008 Pneumococcal Vaccine: 65+ Years Completed 08/10/2016, 08/05/2015 COLONOSCOPY-ANNUAL AGES 18-100 Discontinued 01/09/2023, 01/09/2023, 09/06/2017, Additional history exists GARDASIL-HPV IMMUNIZATION SERIES Aged Out No longer eligible based on patient's age to complete this topic Hepatitis B Aged Out No longer eligi ble based on patient's age to complete this topic MENINGOCOCCAL (MENACTRA/MENVEO) Aged Out No longer eligible based on patient's age to complete this topic documented as of this encounter Medical Devices Implanted Type Area Thermostat Repairer Device Identifier Shelf Expiration Date Model / Serial / Lot Hemostatic Clip Res 235cm - [id number] Implanted:Qty: 1 on 01/09/2023 by Jami Mccann MD at ENDOSCOPY [facility] Post[employer].Ship [employer]ENT[employer] : ENDOSCOPY 06/01/2025 [id number] / / [id number] documented as of this encounter Care Teams Shipping Specialist Relationship Specialty Start Date End Date Saida Maravilla MD [address] [place] [address] PCP - General 01/17/08 documented as of this encounter
--- OUTSIDE RECORDS SUMMARY | 2023-07-14 04:32 | External Medical Summary | Summary of Care ---
Author Name Unknown Organization [facility] Address [address] [place] [address] Phone [phone] Care Team Providers Care Top Lift Compressor Name Role Phone Saida Maravilla MD Primary Care Provider + Reason for Visit * Reason Onset Date Comments Fax 04/12/2023 Encounter Details Date Type Department Care Team (Late st Contact Info) Description 04/12/2023 Telephone General Internal Medicine [facility] [place] [address] [facility] [place] [address] Saida Maravilla MD 200 [facility] [place] [address] Fax Allergies Active Allergy Reactions Criticality Noted Date Comments Penicillins 01/17/2008 Rash documented as of this encounter (statuses as of 04/12/2023) Medications Medication Sig Dispensed Refills Start Date [...] as of this encounter (statuses as of 04/12/2023) Active Problems Problem Noted Date Diagnosed Date Stage 3a chronic kidney disease 2020 Overview: Per CKD protocol Asthma in remission 06/10/2019 Hx of nonmelanoma skin cancer 03/15/2018 Overview: SCCIS R latter day near lateral brow 03/2018 Hx of actinic keratosis 11/03/2011 Allergic rhinitis Menopause documented as of this encounter (statuses as of 04/12/2023) Resolved Problems Problem Noted Date Diagnosed Date Resolved Date Encounter for examination fo r normal comparison and control in clinical research program 05/31/2017 11/03/2019 Overview: DO NOT DELETE [facility] DETECT Study: Project # [id number], Door To Door Lead Generation: Marin Wise, PhD. SUMMARY: Goal: Establish test [...] contact study staff at ; after hours [employer] To [employer] Lead [employer] via the [facility] tape sewing machine operator . Please contact study team before resolving/deleting from patients problem list. Study phone number: [phone]. Diagnosis changed due to Research Module. Go to Snapshot for study details. Encounter for examination fo r normal comparison and control in clinical research program 05/31/2017 12/01/2021 Overview: DO NOT DELETE - [facility] Study: Project # [id number], Door To [employer] Lead Generation: Russ Sanders, MS, MPH. SUMMARY: Goal: Establish [...] contact study staff at ; after hours Door To Door Lead Generation via the [facility] tape sewing machine operator . - Please contact study team before resolving/deleting from patients problem list. Study phone number: [phone]. Diagnosis changed due to Research Module. Go to [employer] for study details. Kidney disease, chronic, sta ge III (GFR 30-59 ml/min) 01/10/2016 02/12/2020 Overview: Per CKD protocol #1 Status asthmaticus 4 documented as of this encounter (statuses as of 04/12/2023) Immunizations Name Administration Dates Next Due COVID-19 [...] encounter Miscellaneous Notes * Telephone Encounter - Kristan Vaughan OSA - 04/12/2023 3:28 PM EST Caller requesting the following information to be faxed: Name/Company of caller: Tim from [employer] PT Information requested to be faxed: PT order Fax number: [phone] Attention to Name/Company: [employer] Any additional information?: faxed requested. documented in this encounter Plan of Treatment Upcoming Encounters Date Type Department Care Team (Late st Contact Info) Description 07/02/2023 10:15 AM EDT Office Visit Dermatology [facility] 200 [facility] [place] [address] Tess Mario MD 08/07/2023 8:00 AM EDT Office Visit General Internal Medicine [facility] [address] [facility] [place] [address] Saida Maravilla MD 200 [facility] [place] [address] 08/09/2023 11:30 AM EDT Imaging Radiology [address], [place] [address] [facility] [place] [address] Scheduled Procedures Name Priority Associated Diagnoses Date/Ti me COLONOSCOPY FLEXIBLE PROXIMA L DIAGNOSTIC Recall History of colonic polyps Health Maintenance Due Date Last Done Comments Zoster Vaccines (1 of 2) 02/08/1998 Depression Screening 07/28/2021 07/28/2020 COVID-19 Vaccine ( season) 2022 06/01/2020, 04/27/2020 Influenza Vaccine (FLU shot) (#1) 2022 01/15/2020, 01/13/2019, 12/06/2017, Additional history exists Albumin/Creatinine Ratio 08/04/2023 023, 08/02/2021, 07/29/2020, Additional history exists CKD HGB USE SMARTSET 02793 08/04/202308/03, 08/02/2021, 07/29/2020, Additional history exists CKD PHOS USE SMARTSET 38578 08/04/2023 05/0 07/2022, 08/02/2021, 07/29/2020 GFR 10/11/2023 04/12/2023, 050 07/2022, 08/02/2021, Additional history exists DXA Scan [...] this encounter Medical Devices Implanted Type Area Laboratory Animal Caretaker Device Identifier Shelf Expiration Date Model / Serial / Lot Hemostatic Clip Res 235cm - [id number] Implanted:Qty: 1 on 01/09/2023 by Jami Mccann MD at ENDOSCOPY [facility] [employer] : ENDOSCOPY 06/01/2025 [id number] / / [id number] documented as of this encounter Care Teams Top Lift Compressor Relationship Specialty Start Date End Date Saida Maravilla MD [address] [place] [address] PCP - General 01/17/08 documented as of this encounter
--- OUTSIDE RECORDS SUMMARY | 2023-07-14 04:32 | External Medical Summary | Summary of Care ---
Author Name Unknown Organization [facility] Address [address] [place] [address] Phone [phone] Care Team Providers Care Environmental Aid Name Role Phone Saida Maravilla MD Primary Care Provider + Reason for Visit * Reason Comments Outpatient Testing Encounter Details Date Type Department Care Team (Late st Contact Info) Description 04/12/2023 1:30 PM EST Laboratory Laboratory [facility] [place] [address] [place] [address] [place] [address] Hyperlipidemia with target LDL less than 100; Stage 3a chronic kidney disease (HCC) Allergies Active Allergy Reactions Criticality Noted Date [...] nonmelanoma skin cancer 03/15/2018 Overview: SCCIS R lutheran near lateral brow 03/2018 Hx of actinic keratosis 11/03/2011 Allergic rhinitis Menopause documented as of this encounter (statuses as of 04/12/2023) Resolved Problems Problem Noted Date Diagnosed Date Resolved Date Encounter for examination fo r normal comparison and control in clinical research program 05/31/2017 11/03/2019 Overview: DO NOT DELETE [facility] DETECT Study: Project # [id number], Concrete Pipe Plant Supervisor: Marin Wise, PhD. SUMMARY: Goal: Establish test [...] contact study staff at ; after hours Concrete Pipe Plant Supervisor via the [facility] hospital log processor operator . Please contact study team before resolving/deleting from patients problem list. Study phone number: [phone]. Diagnosis changed due to Research Module. Go to Snapshot for study details. Encounter for examination fo r normal comparison and control in clinical research program 05/31/2017 12/01/2021 Overview: DO NOT DELETE - [facility] Study: Project # [id number], Concrete Pipe Plant Supervisor: Russ Sanders, MS, MPH. SUMMARY: Goal: Establish [...] contact study staff at ; after hours Concrete Pipe Plant Supervisor via the [facility] hospital log processor operator . - Please contact study team before resolving/deleting from patients problem list. Study phone number: [phone]. Diagnosis changed due to Research Module. Go to Snapshot for study details. Kidney disease, chronic, sta [...] on file documented as of this encounter Plan of Treatment Upcoming Encounters Date Type Department Care Team (Late st Contact Info) Description 07/02/2023 10:15 AM EDT Office Visit Dermatology [facility] [address] [place] [address] Tess Mario MD 08/07/2023 8:00 AM EDT Office Visit General Internal Medicine [facility] [address] [place] [address] Saida Maravilla MD 200 [facility] [place] [address] 08/09/2023 11:30 AM EDT Imaging Radiology [facility] [facility] [address] [place] [address] Pending Results Name Type Priority Associated Diagnoses Date /Time LDL CHOLESTEROL (DIRECT MEASURE) Lab Routine Hyperlipidemia with target LDL less than 100 04/12/2023 1:22 PM EST ALT Lab Routine Hyperlipidemia with target LDL less than 100 04/12/2023 1:22 PM EST BASIC METABOLIC PANEL Lab Routine Stage 3a chronic kidney disease (HCC) 04/12/2023 1:22 PM EST Scheduled Procedures Name Priority Associated Diagnoses Date/Ti me COLONOSCOPY FLEXIBLE PROXIMA L DIAGNOSTIC Recall History of colonic polyps Health Maintenance Due Date Last Done Comments Zoster Vaccines (1 of 2) 02/08/1998 Depression Screening 07/28/2021 07/28/2020 COVID-19 Vaccine ( season) 2022 06/01/2020, 04/27/2020 Influenza Vaccine (FLU shot) (#1) 2022 01/15/2020, 01/13/2019, 12/06/2017, Additional history exists GFR 02/03/2023 08/03/2022, 05/0 05/2021, 07/29/2020, Additional history exists Albumin/Creatinine Ratio 08/04/2023 023, 08/02/2021, 07/29/2020, Additional history exists CKD HGB USE SMARTSET 40213 08/04/202308/03, 08/02/2021, 07/29/2020, Additional history exists CKD PHOS USE SMARTSET 67544 08/04/2023 05/0 07/2022, 08/02/2021, 07/29/2020 DXA Scan 09/06/2026 09/06/2021, 08/31, 03/02/2008 COLONOSCOPY-EVERY [...] this encounter Medical Devices Implanted Type Area Hot Stone Setter Device Identifier Shelf Expiration Date Model / Serial / Lot Hemostatic Clip Res 235cm - [id number] Implanted:Qty: 1 on 01/09/2023 by Jami Mccann MD at ENDOSCOPY [facility] [employer] [facility] : ENDOSCOPY 06/01/2025 [id number] / / [id number] documented as of this encounter Visit Diagnoses Diagnosis Hyperlipidemia with target LDL less than 100 Other and unspecified hyperlipidemia Stage 3a chronic kidney disease (HCC) documented in this encounter Care Teams Environmental Aid Relationship Specialty Start Date End Date Saida Maravilla MD 200 [facility] [place] [address] PCP - General 01/17/08 documented as of this encounter
--- OUTSIDE RECORDS SUMMARY | 2023-07-14 04:32 | External Medical Summary | Summary of Care ---
Author Name Unknown Organization [facility] Address [address] [place] [address] Phone [phone] Care Team Providers Care Precision Instrument And Tool Maker Name Role Phone Saida Maravilla MD Primary Care Provider + Reason for Visit * Reason Onset Date Comments Appointment 06/07/2023 Encounter Details Date Type Department Care Team (Late st Contact Info) Description 06/07/2023 Telephone Radiology [address], [place] [address] [facility] [place] [address] Ann Casey, RT (R) Appointment Allergies Active Allergy Reactions Criticality Noted Date Comments Penicillins 01/17/2008 Rash documented as of this encounter (statuses as of 06/07/2023) Medications Medication Sig Dispensed Refills Start Date [...] as of this encounter (statuses as of 06/07/2023) Active Problems Problem Noted Date Diagnosed Date Stage 3a chronic kidney disease 2020 Overview: Per CKD protocol Asthma in remission 06/10/2019 Hx of nonmelanoma skin cancer 03/15/2018 Overview: SCCIS R restorationism near lateral brow 03/2018 Hx of actinic keratosis 11/03/2011 Allergic rhinitis Menopause documented as of this encounter (statuses as of 06/07/2023) Resolved Problems Problem Noted Date Diagnosed Date Resolved Date Encounter for examination fo r normal comparison and control in clinical research program 05/31/2017 11/03/2019 Overview: DO NOT DELETE [facility] DETECT Study: Project # [id number], Used Car Renovator: Marin Wise, PhD. SUMMARY: Goal: Establish test [...] contact study staff at ; after hours Used Car Renovator via the [facility] pearl glue operator . Please contact study team before resolving/deleting from patients problem list. Study phone number: [phone]. Diagnosis changed due to Research Module. Go to Snapshot for study details. Encounter for examination fo r normal comparison and control in clinical research program 05/31/2017 12/01/2021 Overview: DO NOT DELETE - [facility] Study: Project # [id number], Used Car Renovator: Russ Sanders, MS, MPH. SUMMARY: Goal: Establish [...] contact study staff at ; after hours Used Car Renovator via the [facility] hospital pearl glue operator . - Please contact study team before resolving/deleting from patients problem list. Study phone number: [phone]. Diagnosis changed due to Research Module. Go to [email or web address] for study details. Kidney disease, chronic, sta ge III (GFR 30-59 ml/min) 01/10/2016 02/12/2020 Overview: Per CKD protocol #1 Status asthmaticus 4 documented as of this encounter (statuses as of 06/07/2023) Immunizations Name Administration Dates Next Due COVID-19 [...] encounter Miscellaneous Notes * Telephone Encounter - Ann Casey RT (R) - 06/07/2023 12:44 PM EST Name: Samantha Landeros Do you have any of the following: Pacemaker, stents, heart valves, aneurysm clips? No Have you ever worked with metal or have you ever gotten metal in your eyes? No Have you had a colonoscopy in the last 30 days? No On dialysis? No Do you have any dermals or body piercing's? No or ? Do you wear an insulin pump or diabetic monitor? no RT Monty (R) documented in this encounter Plan of Treatment Upcoming Encounters Date Type Department Care Team (Late st Contact Info) Description 06/08/2023 8:00 AM EST Imaging Radiology [address] [facility] [place] [address] 08/07/2023 8:00 AM EDT Office Visit General Internal Medicine [facility] [address] [place] [address] Saida Maravilla MD [address] [facility] [place] [address] 08/09/2023 11:30 AM EDT Imaging Radiology [address] [facility] [place] [address] 11/01/2023 1:20 PM EDT Office Visit Dermatology [facility] [address] [place] [address] Essie Bryan PA-C [address] [place] [address] Scheduled Procedures Name Priority Associated Diagnoses Date/Ti [...] Additional history exists CKD HGB USE SMARTSET 81978 08/04/202308/03, 08/02/2021, 07/29/2020, Additional history exists CKD PHOS USE SMARTSET 36621 08/04/2023 05/0 07/2022, 08/02/2021, 07/29/2020 GFR 10/11/2023 [...] this encounter Medical Devices Implanted Type Area Dinkey Dispatcher Device Identifier Shelf Expiration Date Model / Serial / Lot Hemostatic Clip Res 235cm - [id number] Implanted:Qty: 1 on 01/09/2023 by Jami Mccann MD at ENDOSCOPY [facility] [employer] : ENDOSCOPY 06/01/2025 [id number] / / [id number] documented as of this encounter Care Teams Precision Instrument And Tool Maker Relationship Specialty Start Date End Date Saida Maravilla MD 200 [facility] [place] [address] PCP - General 01/17/08 documented as of this encounter
--- OUTSIDE RECORDS SUMMARY | 2023-07-14 04:32 | External Medical Summary | Summary of Care ---
Author Name Unknown Organization [facility] Address [address] [place] [address] Phone [phone] Care Team Providers Care Uniform Designer Name Role Phone Saida Maravilla MD Primary Care Provider + Reason for Referral * Evaluate & Treat - Unlimited Visits (Within 30 days (routine)) - Pending Review Specialty Diagnoses / Procedures Referred By Contac t Referred To Contact Pain Management / Pain Medicine Diagnoses Spondylolisthesis of lumbar region Christopher Brooks MD [address] [place] [address] Referral ID Status Reason Start Date Expiration Date Visits Requested Visits Authorized [id number] Pending Review Specialty Services Required 06/18/[phone] Question Answer Referral Priority Within 30 days (routine) Where should this appointment be scheduled? [facility] Reason for referral? Interventional Pain Management - (Injection) - degen spondy L4-5 What condition is the patient being referred for? Lumbar Radiculopathy What is the preferred location to have this test performed? [facility] Comments Patient Name: Samantha Landeros Date of : 1950 Department Phone Number: MRI or CT (if unable to have a MRI) is recommended if any of the following apply: 1. Patient has neck or back pain with radiation to extremities. A previous MRI will be accepted if symptoms unchanged since prior MRI. 2. Spinal surgery since last MRI. If yes, order a MRI with and without contrast. 3. Hx or ongoing cancer treatment. Patient will need spine x-ray (Ap/Lat) for axial neck or back pain if not done previously. Fax No. [facility] [phone] or contact front worker [phone] Fax No. [facility] [phone] or contact front worker [phone] Fax No. [facility] [phone] or contact front worker [phone] Reason for Visit * Reason Comments NEW PATIENT * Evaluate & Treat - Unlimited Visits (Within 10 days (routine)) - Pending Review Specialty Diagnoses / Procedures Referred By Contac t Referred To Contact Neuro/Ortho Surgery - Spine. / Neurological Surgery Diagnoses Chronic right-sided low back pain with right-sided sciatica Saida Maravilla MD [address] [place] [address] Referral ID Status Reason Start Date Expiration Date Visits Requested Visits Authorized [id number] Pending Review Specialty Services Required 06/12/[phone] Encounter Details Date Type Department Care Team (Latest Contact Info) Description 06/18/2023 8:30 AM EDT Office Visit Neurosurgery, [place] [address] [place] [address] Christopher Brooks MD [address] [place], [place] [id number] Spondylolisthesis of lumbar region* Allergies Active Allergy Reactions Criticality Noted Date Comments Penicillins 01/17/2008 Rash documented as of this encounter (statuses as of 06/18/2023) Medications Medication Sig Dispensed Refills Start Date [...] as of this encounter (statuses as of 06/18/2023) Active Problems Problem Noted Date Diagnosed Date Stage 3a chronic kidney disease 2020 Overview: Per CKD protocol Asthma in remission 06/10/2019 Hx of nonmelanoma skin cancer 03/15/2018 Overview: 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 SUMMARY: Goal: Establish test [...] contact study staff at ; after hours Striper Machine via the [facility] hospital adding machine operator . Please contact study team before resolving/deleting from patients problem list. Study phone number: [phone]. Diagnosis changed due to Research Module. Go to Snapshot for study details. Encounter for examination fo r normal comparison and control in clinical research program 05/31/2017 12/01/2021 Overview: DO NOT DELETE - [facility] Study: Project # [id number], Striper Machine: Russ Sanders, MS, MPH. SUMMARY: Goal: Establish [...] contact study staff at ; after hours Striper Machine via the [facility] hospital adding machine operator . - Please contact study team before resolving/deleting from patients problem list. Study phone number: [phone]. Diagnosis changed due to Research Module. Go to Snapshot for study details. Kidney disease, chronic, sta ge III (GFR 30-59 ml/min) 01/10/2016 02/12/2020 Overview: Per CKD protocol #1 Status asthmaticus 4 documented as of this encounter (statuses as of 06/18/2023) Immunizations Name Administration Dates Next Due COVID-19 [...] on file documented as of this encounter Progress Notes * Christopher Brooks MD - 06/18/2023 8:42 AM EDT PROGRESS NOTE - Neurosurgery [address] [address] Name: Samantha Landeros Date: 06/18/2023 Time: 8:42 AM 73-year-old woman I am meeting for the 1st time. She has a degenerative spondylolisthesis at L4-L5 with a fair amount of central stenosis as well as right-sided foraminal stenosis. On examination shehas some degree of back pain with radiating symptoms of claudication bilaterally and right lower extremity radiculopathy. On exam she has no weakness, pathologic reflexes, and unremarkable gait. MRI demonstrates degenerative spondylolisthesis at L4-L5. There is right-sided L4 foraminal stenosis. She has no bowel or bladder dysfunction. I have counseled the patient that, in the absence of red flags such as significant weakness or bowel/bladder dysfunction, surgery should be considered a last resort for this condition. The natural history is such that most patients will improve and not go on to require surgery if 12-16 weeks of conservative measures are implemented. Mainstays of conservative measures short of surgery include: physical therapy including core-strengthening and Damion exercises, short-term oral administration ofcorticosteroid and/or NSAID medications, medications for neuropathic pain including gabapentin or pregabalin, and injection therapy (including but not limited to: epidural and/or transforaminal steroid injections, selective nerve root blocks, facet blocks, trigger point injections, rhizotomy, medial branch block). Other modalities that may provide benefit to some patients include: aqua therapy, ocular care aide, acupuncture, yoga/Pilates, and massage therapy. She reports she is done many years of physical therapy without lasting relief. She has not seen pain management. We will plan to send a pain management for an assessment. I would recommend she undergo an epidural. For recalcitrant symptoms would consider decompression and probably a fusion given the degenerative spondylolisthesis. We will also need CT and dynamic imaging to look for active instability. She has a DEXA scan from some years ago which looks good and no known history of osteoporosis. Thoracic MRI shows Hounsfield units in the 200 range. The patient and her partner voiced understanding and requests to proceed. All answered. They will follow up once the pain management assessment is complete. PAST MEDICAL HISTORY: Past Medical History: Diagnosis Date Allergic rhinitis Benign neoplasm of colon 03/22/2010 polyps, path shows benign tissue repeat in 2 years Benign neoplasm of colon 07/29/12 Menopause Status asthmaticus 2000 PAST SURGICAL HISTORY: Past Surgical History: Procedure Laterality Date BREAST BIOPSY Right Benign---date of biopsy unknown BREAST BIOPSY-STEREOTACTIC rt breast 2003 negative findings COLONOSCOPY W/ BIOPSY (RECTUM) 03/22/2010 polyps, path shows benign tissue repeat in 2 years COLONOSCOPY, DIAGNOSTIC (RECTUM) 07/29/2012 hyperplastic polyp, repeat 5 yrs/COLONOSCOPY FLEXIBLE PROXIMAL DIAGNOSTIC performed by Dipika Santana DO at [facility]OSCOPY [facility], hyperplastic polyps repeat colonoscopy in 5 years COLONOSCOPY, DIAGNOSTIC (RECTUM) 09/06/2017 poor prep, repeat 1 yr/COLONOSCOPY FLEXIBLE PROXIMAL DIAGNOSTIC performed by Dipika Santana DO at ENDOSCOPY [facility] COLONOSCOPY, DIAGNOSTIC (RECTUM) 01/09/2023 diverticulosis/biopsies show adenomatous polyps/recall 5 years/COLONOSCOPY FLEXIBLE PROXIMAL DIAGNOSTIC performed by Jami Mccann MD at ENDOSCOPY [facility] LIGATE/CUT OVIDUCT(S) FAMILY HISTORY: Family History Problem Relation Age of Onset Cancer Father lung Lung Disorder Father smoker Heart Disorder Mother Renal Hx Mother borderline renal failure No Past Hx Sister Gastro-intestinal disorder Sister gall stones No Past Hx Brother SOCIAL HISTORY: Social History Tobacco Use Smoking status: Never Smokeless tobacco: Never Substance Use Topics Alcohol use: Yes Comment: wine with dinner nightly Drug use: No Current Outpatient Medications: Docusate Sodium 50 MG Oral Capsule (Colace), Take 2 Capsules by mouth at bedtime., Disp: , Rfl: Gabapentin 100 MG Oral Capsule (Neurontin), One pill at bedtime for 5 days then 2 pills at bedtime for 5 days then continue 3 pills at bedtime., Disp: 90 Capsule, Rfl: 5 Budesonide-Formoterol Fumarate 160-4.5 MCG/ACT Inhalation Aerosol (Symbicort), USE 2 INHALATIONS TWICE A DAY, Disp: 30.6 g, Rfl: 1 Albuterol Sulfate HFA 108 (90 Base) MCG/ACT Inhalation Aerosol Solution, Inhale 2 Puffs by mouth every 4 hours as needed for Wheezing., Disp: 54 g, Rfl: 1 Metamucil Fiber Oral Tablet Chewable, Take 5 Tablets by mouth in the morning., Disp: , Rfl: Montelukast Sodium 10 MG Oral Tablet (Singulair), TAKE 1 TABLET DAILY, Disp: 90 Tablet, Rfl: 3 zoster vac recomb adjuvanted (SHINGRIX) 50 MCG/0.5ML injection, Inject 0.5 mL into a large muscle now and repeat dose in 60 to 180 days. Please fax date this was given to our office., Disp: 1 Each, Rfl: 1 Coenzyme Q10 200 MG Capsule, Take 1 Capsule by mouth in the morning., Disp: , Rfl: CALCIUM 500 MG PO TABS, one pill each day, Disp: , Rfl: GLUCOSAMINE CHONDR 500 COMPLEX PO CAPS, one pill each day, Disp: , Rfl: MULTIVITAMINS PO CAPS, one pill each day, Disp: , Rfl: ALLERGIES: Pcn [penicillins] VITALS: There were no vitals taken for this visit. [facility] This document was dictated using voice recognition software. Please excuse any errors. documented in this encounter Plan of Treatment Upcoming Encounters Date Type Department Care Team (Late st Contact Info) Description 08/07/2023 8:00 AM EDT Office Visit General Internal Medicine [facility] [address] [place] [address] Saida Maravilla MD [address] [place] [address] 08/09/2023 11:30 AM EDT Imaging Radiology [facility] [place] [address] [place] [address] 11/01/2023 1:20 PM EDT Office Visit Dermatology [facility] [place] [address] [place] [address] Essie Bryan PA-C [address] [facility] [place] [id number] Scheduled Procedures Name Priority Associated Diagnoses Date/Ti me COLONOSCOPY FLEXIBLE PROXIMA L DIAGNOSTIC Recall History of colonic polyps Scheduled Referrals Name Type Priority Associated Diagnoses Orde r Schedule PAIN MEDICINE REFERRAL OP Referral Within 30 days (routine) Spondylolisthesis of lumbar region Ordered: 06/18/2023 Health Maintenance Due Date Last Done Comments Zoster Vaccines (1 of 2) 02/08/1998 Depression Screening 07/28/2021 07/28/2020 COVID-19 Vaccine (3 - season) 2022 06/01/2020, 04/27/2020 Influenza Vaccine (FLU shot) (#1) 2022 01/15/2020, 01/13/2019, 12/06/2017, Additional history exists Albumin/Creatinine Ratio 08/04/2023 023, 08/02/2021, 07/29/2020, Additional history exists CKD HGB USE SMARTSET 44747 08/04/202308/03, 08/02/2021, 07/29/2020, Additional history exists CKD PHOS USE SMARTSET 83142 08/04/2023 05/0 07/2022, 08/02/2021, 07/29/2020 GFR 10/11/2023 [...] this encounter Medical Devices Implanted Type Area Swimming Pool Salesperson Device Identifier Shelf Expiration Date Model / Serial / Lot Hemostatic Clip Res 235cm - [id number] Implanted:Qty: 1 on 01/09/2023 by Jami Mccann MD at ENDOSCOPY [facility] : ENDOSCOPY 06/01/2025 [id number] / / [id number] documented as of this encounter Visit Diagnoses Diagnosis Spondylolisthesis of lumbar region- Primary Acquired spondylolisthesis documented in this encounter Care Teams Uniform Designer Relationship Specialty Start Date End Date Saida Maravilla MD [address] [place] [address] [place] [address] PCP - General 01/17/08 documented as of this encounter
--- OUTSIDE RECORDS SUMMARY | 2023-07-14 04:32 | External Medical Summary | Summary of Care ---
Author Name Unknown Organization [facility] Address [address] [place] [address] Phone [phone] Care Team Providers Care Stick Roller Name Role Phone Saida Maravilla MD Primary Care Provider + Reason for Visit * Reason Onset Date Comments Medical Records Request 06/15/2023 Encounter Details Date Type Department Care Team (Late st Contact Info) Description 06/15/2023 Telephone General Internal Medicine [facility] [place] [address] [facility] [place] [address] Saida Maravilla MD [address] [facility] [place] [address] Medical Records Request Allergies Active Allergy Reactions Criticality Noted Date Comments Penicillins 01/17/2008 Rash documented as of this encounter (statuses as of 06/15/2023) Medications Medication Sig Dispensed Refills Start Date [...] as of this encounter (statuses as of 06/15/2023) Active Problems Problem Noted Date Diagnosed Date Stage 3a chronic kidney disease 2020 Overview: Per CKD protocol Asthma in remission 06/10/2019 Hx of nonmelanoma skin cancer 03/15/2018 Overview: SCCIS R episcopal near lateral brow 03/2018 Hx of actinic keratosis 11/03/2011 Allergic rhinitis Menopause documented as of this encounter (statuses as of 06/15/2023) Resolved Problems Problem Noted Date Diagnosed Date Resolved Date Encounter for examination fo r normal comparison and control in clinical research program 05/31/2017 11/03/2019 Overview: DO NOT DELETE [facility] DETECT Study: Project # [id number], Animal Tech: Marin Wise, PhD. SUMMARY: Goal: Establish test [...] contact study staff at ; after hours Animal Tech via the [facility] mobile plant operators . Please contact study team before resolving/deleting from patients problem list. Study phone number: [phone]. Diagnosis changed due to Research Module. Go to Snapshot for study details. Encounter for examination fo r normal comparison and control in clinical research program 05/31/2017 12/01/2021 Overview: DO NOT DELETE - [facility] Study: Project # [id number], Animal Tech: Russ Sanders, MS, MPH. SUMMARY: Goal: Establish [...] contact study staff at ; after hours Animal Tech via the [facility] hospital mobile plant operators . - Please contact study team before resolving/deleting from patients problem list. Study phone number: [phone]. Diagnosis changed due to Research Module. Go to Stardoll for study details. Kidney disease, chronic, sta ge III (GFR 30-59 ml/min) 01/10/2016 02/12/2020 Overview: Per CKD protocol #1 Status asthmaticus 4 documented as of this encounter (statuses as of 06/15/2023) Immunizations Name Administration Dates Next Due COVID-19 [...] encounter Miscellaneous Notes * Telephone Encounter - Osiel Hughes OSA - 06/15/2023 10:40 AM EDT Medical Records Release to Dr Tomy Spain Medical Records Release forwarded to [facility] documented in this encounter Plan of Treatment Upcoming Encounters Date Type Department Care Team (Late st Contact Info) Description 06/18/2023 8:30 AM EDT Office Visit Neurosurgery, [place] [address] [place] [address] Christopher Brooks MD [address] [place] [address] 08/07/2023 8:00 AM EDT Office Visit General Internal Medicine [facility] [address] [place] [address] Saida Maravilla MD [address] [place] [address] 08/09/2023 11:30 AM EDT Imaging Radiology [address] [place] [address] 11/01/2023 1:20 PM EDT Office Visit Dermatology [facility] [address] [place] [address] Essie Bryna PA-C [address] [place] [phone] Scheduled Procedures Name Priority Associated Diagnoses Date/Ti [...] Additional history exists CKD HGB USE SMARTSET 77509 08/04/202308/03, 08/02/2021, 07/29/2020, Additional history exists CKD PHOS USE SMARTSET 29837 08/04/2023 05/0 07/2022, 08/02/2021, 07/29/2020 GFR 10/11/2023 [...] this encounter Medical Devices Implanted Type Area Painter Mirror Device Identifier Shelf Expiration Date Model / Serial / Lot Hemostatic Clip Res 235cm - [id number] Implanted:Qty: 1 on 01/09/2023 by Jami Mccann MD at [facility] : END[facility]COPY 06/01/2025 [id number] / / [id number] documented as of this encounter Care Teams Stick Roller Relationship Specialty Start Date End Date Saida Maravilla MD [address] [place] [address], [place] [address] PCP - General 01/17/08 documented as of this encounter
--- OUTSIDE RECORDS SUMMARY | 2023-07-14 04:32 | External Medical Summary | Summary of Care ---
Author Name Unknown Organization [facility] Address [address] [place] [address] Phone [phone] Care Team Providers Care Cable Worker Helper Name Role Phone Saida Maravilla MD Primary Care Provider + Reason for Visit * Reason Comments Back Pain * Evaluate & Treat - Unlimited Visits (Within 30 days (routine)) - Pending Review Specialty Diagnoses / Procedures Referred By Alejandra payne Referred To Contact Pain Management / Pain Medicine Diagnoses Spondylolisthesis of lumbar region Christopher Brooks MD [address] [place] [address] Referral ID Status Reason Start Date Expiration Date Visits Requested Visits Authorized [id number] Pending Review Specialty Services Required 06/18/[phone] Encounter Details Date Type Department Care Team (Late st Contact Info) Description 06/28/2023 12:30 PM EDT Office Visit [facility], [facility] [address] [place] [address] Tanya Rogel PA-C [address] [place] [address] Lumbar radicular pain*; Spinal stenosis of lumbar region with neurogenic claudication Allergies Active Allergy Reactions Criticality Noted Date Comments Nsaids 06/28/2023 Unable to take due to kidney disease Penicillins 01/17/2008 Rash documented as of this encounter (statuses as of 06/28/2023) Medications Medication Sig Dispensed Refills Start Date [...] at bedtime. 90 Capsule 5 04/12/2023 Active Additional Information Patient not taking.Reported on 06/28/2023 documented as of this encounter (statuses as of 06/28/2023) Active Problems Problem Noted Date Diagnosed Date Stage 3a chronic kidney disease 2020 Overview: Per CKD protocol Asthma in remission 06/10/2019 Hx of nonmelanoma skin cancer 03/15/2018 Overview: SCCIS R druze near lateral brow 03/2018 Hx of actinic keratosis 11/03/2011 Allergic rhinitis Menopause documented as of this encounter (statuses as of 06/28/2023) Resolved Problems Problem Noted Date Diagnosed Date Resolved Date Encounter for examination fo r normal comparison and control in clinical research program 05/31/2017 11/03/2019 Overview: DO NOT DELETE [facility] DETECT Study: Project # [id number], Horticulture Supervisor: Marin Wise, PhD. SUMMARY: Goal: Establish [...] contact study staff at ; after hours Horticulture Supervisor via the [facility] hospital concrete mixer operator . Please contact study team before resolving/deleting from patients problem list. Study phone number: [phone]. Diagnosis changed due to Research Module. Go to Snapshot for study details. Encounter for examination fo r normal comparison and control in clinical research program 05/31/2017 12/01/2021 Overview: DO NOT DELETE - [facility] DETECT Study: Project # [id number], Horticulture Supervisor: Russ Sanders, MS, MPH. SUMMARY: Goal: [...] contact study staff at ; after hours Horticulture Supervisor via the [facility] hospital concrete mixer operator . - Please contact study team before resolving/deleting from patients problem list. Study phone number: [phone]. Diagnosis changed due to Research Module. Go to Snapshot for study details. Kidney disease, chronic, sta ge III (GFR 30-59 ml/min) 01/10/2016 02/12/2020 Overview: Per CKD protocol #1 Status asthmaticus 4 documented as of this encounter (statuses as of 06/28/2023) Immunizations Name Administration Dates Next Due COVID-19 [...] as of this encounter Progress Notes * Tanya Rogel PA-C - 06/28/2023 12:30 PM EDT GENERAL HISTORY & PHYSICAL EXAMINATION - Anesthesia and Pain Service Name: Samantha Landeros Location: [facility] REFERRING PHYSICIAN: Christopher Brooks MD Thank you for referring Samantha Landeros. CHIEF COMPLAINT: Low back and R LE pain HPI: Samantha Landeros is a 73 year old female who complains of low back and buttock pain that radiates toR > L posterior thigh and calf. This pain started six months ago without preceding injury. Followed with PCP and more recently neurosurgery for this complaint - requesting MARIELY. Remains active, walking program, resistance training three days per week (has personal service representative.) Currently enrolled in physical therapy, Saurabh Stephenson - completed a few sessions. Has also tried at [facility] without benefit. Symptoms occur daily. Describes pain as "shooting." Pain is constant, rated 7/10. Aggravating factors include: transitional movement, prolonged standing and sitting. Unable to provide alleviating factors. Admits associated weakness R > L LE. Notes "fizzing" lateral thigh, ?paresthesia. Denies bowel or bladder incontinence. Denies hx spine surgery or injections. Pain is affecting ADL and sleep. Reviewed L spine xray 04/12/23 - mild scoliosis, grade 2 listhesis L4/5, mild to moderate facet arthropathy which seems to have progressed, no acute compression changes. Reviewed L spine MRI 06/08/23 - grade 2 listhesis L4/5 with disc bulge and facet arthropathy causingsevere central stenosis with R > L foraminal narrowing, mild foraminal narrowing L3/4, ??? Arachnoiditis. Significant past medical hx includes: CKD. Temp relief with lidocaine patch, capsaicin cream Avoids NSAID due to CKD. Per patient, gabapentin was denied by insurance, did not use. Anticoagulation therapy: no Diabetic: no PAST MEDICAL HISTORY: Past Medical History: Diagnosis Date Allergic rhinitis Benign neoplasm of colon 03/22/2010 polyps, path shows benign tissue repeat in 2 years Benign neoplasm of colon 07/29/12 Menopause Status asthmaticus 2000 Past Medical History - Pertinent Findings: (-) clotting disorder PAST SURGICAL HISTORY: Past Surgical History: Procedure Laterality Date BREAST BIOPSY Right Benign---date of biopsy unknown BREAST BIOPSY-STEREOTACTIC rt breast 2002 negative findings COLONOSCOPY W/ BIOPSY (RECTUM) 03/22/2010 polyps, path shows benign tissue repeat in 2 years COLONOSCOPY, DIAGNOSTIC (RECTUM) 07/29/2012 hyperplastic polyp, repeat 5 yrs/COLONOSCOPY FLEXIBLE PROXIMAL DIAGNOSTIC performed by Dipika Santana DO at END[facility]COPY [facility], hyperplastic polyps repeat colonoscopy in 5 years COLONOSCOPY, DIAGNOSTIC (RECTUM) 09/06/2017 poor prep, repeat 1 yr/COLONOSCOPY FLEXIBLE PROXIMAL DIAGNOSTIC performed by Dipika Santana DO at ENDOSCOPY [facility] COLONOSCOPY, DIAGNOSTIC (RECTUM) 01/09/2023 diverticulosis/biopsies show adenomatous polyps/recall 5 years/COLONOSCOPY FLEXIBLE PROXIMAL DIAGNOSTIC performed by Jami Mccann MD at ENDOSCOPY [facility] LIGATE/CUT OVIDUCT(S) FAMILY HISTORY: Family History Problem Relation Age of Onset Cancer Father lung Lung Disorder Father smoker Heart Disorder Mother Renal Hx Mother borderline renal failure No Past Hx Sister Gastro-intestinal disorder Sister gall stones No Past Hx Brother Family History - Pertinent Findings: (-) clotting disorder SOCIAL HISTORY: Social History Tobacco Use Smoking status: Never Smokeless tobacco: Never Substance Use Topics Alcohol use: Yes Comment: wine with dinner nightly Drug use: No CURRENT MEDICATIONS: Note that discontinued and completed medications (per the MAR) continue to display for 24 hours. Ordered medications to be given in the future also display. Current Outpatient Medications Medication Sig Dispense Refill MULTIVITAMINS PO CAPS one pill each day GLUCOSAMINE CHONDR 500 COMPLEX PO CAPS one pill each day CALCIUM 500 MG PO TABS one pill each day Coenzyme Q10 200 MG Capsule Take 1 Capsule by mouth in the morning. Montelukast Sodium 10 MG Oral Tablet (Singulair) TAKE 1 TABLET DAILY 90 Tablet 3 Metamucil Fiber Oral Tablet Chewable Take 5 Tablets by mouth in the morning. Albuterol Sulfate HFA 108 (90 Base) MCG/ACT Inhalation Aerosol Solution Inhale 2 Puffs by mouth every 4 hours as needed for Wheezing. 54 g 1 Budesonide-Formoterol Fumarate 160-4.5 MCG/ACT Inhalation Aerosol (Symbicort) USE 2 INHALATIONS TWICE A DAY 30.6 g 1 Docusate Sodium 50 MG Oral Capsule (Colace) Take 2 Capsules by mouth at bedtime. zoster vac recomb adjuvanted (SHINGRIX) 50 MCG/0.5ML injection Inject 0.5 mL into a large muscle now and repeat dose in 60 to 180 days. Please fax date this was given to our office. 1 Each 1 Gabapentin 100 MG Oral Capsule (Neurontin) One pill at bedtime for 5 days then 2 pills at bedtime for 5 days then continue 3 pills at bedtime. (Patient not taking: Reported on 06/28/2023) 90 Capsule 5 No current facility-administered medications for this visit. ALLERGIES: Nsaids and Pcn [penicillins] ROS: Constitutional: Negative for fatigue, fever, appetite change, unexplained weight loss. ENT: Negative for hearing loss, sore throat. Respiratory: Negative for cough, shortness of breath, dyspnea. Musculoskeletal: Negative for neck, mid-back pain. + low back and LE pain - see HPI Neurological: Negative for headaches, seizures. + paresthesias B LE - see HPI Genitourinary: Negative for dysuria, urinary frequency, hematuria. Hematologic/ Lymphatic: Negative for easy bleeding, bruising, lymphadenopathy. Gastrointestinal: Negative for abdominal pain, nausea, vomiting, constipation, diarrhea. Cardiovascular: Negative for chest pain, palpitations, ankle swelling, orthopnea. PHYSICAL EXAMINATION: Most Recent Vital Signs: There were no vitals filed for this visit. General Appearance: Patient appears to be about stated age, pleasant and cooperative with normal affect. HEENT: head normocephalic, pupils equal round and reactive to light and accommodation, EOMI, hearing intact and equal bilaterally, and nose clear, throat normal Chest: No gross abnormality. Nonlabored breathing. Lumbar Spine: Normal lumbar lordatic curvature is present. Skin is intact without gross abnormalities. No masses palpable. Midline and B paravertebral musculature nontender. B sacroiliac joint nontender. No evidence of myofascial trigger points. Mildly limited active ROM with flexion and extension of the lumbar spine. Lower Extremity Strength: Hip Flexion 5/5 bilaterally. Hip Abductor 5/5 bilaterally. Hip Adductor 5/5 bilaterally. Extensor Hallicus Longus 5/5 bilaterally. Deep Tendon Reflex: Patellar: 2/4 bilaterally. Achilles: 2/4 bilaterally. Low Back Provocative Testing: GREGOR test: negative bilaterally. Straight Leg Raise Test: positive R > L. Lumbar Facet Loading: mildly positive. Sensation: Dermatomal sensation not formally tested. Grossly normal and symmetric unless otherwise specified. Gait: Intact, no sign of ataxia. Ambulates without assistance. IMAGING: MRI LUMBAR SPINE WITHOUT AND WITH CONTRAST 06/08/23 The retroperitoneal tissues are unremarkable in appearance. The conus terminates at the T12-L1 level. Signal in the distal spinal cord is normal. There is grade 2 anterolisthesis of L4 on L5. Alignment is otherwise anatomic. Disc space narrowing at the L4-5 and L5-S1 levels is associated with mild discogenic endplate changes. No additional focal marrow signal changes are present on the STIR sequence. On the post gadolinium imaging there is a small amount of enhancement at the margins of the L4-5 and L3-4 facet joints. At L1-2 and L2-3 there is no herniation or thecal sac stenosis and there is no foraminal compromise. At L3-4 bilateral facet degeneration and disc bulge cause mild bilateral subarticular narrowing without thecal sac stenosis. There is mild foraminal narrowing bilaterally. At L4-5 anterolisthesis, disc bulge, facet degeneration, and ligamentum flavum redundancy all result in severe thecal sac narrowing with crowding of the nerve roots and bilateral subarticular stenosis. There is the suggestion of enhancement of the nerve roots at this level on the post gadolinium imaging. Severe foraminal narrowing is present on the right and moderate to severe left foraminal narrowing is noted. At L5-S1 there is no thecal sac stenosis. Mild bilateral foraminal narrowing is evident. IMPRESSION: Severe thecal sac stenosis and bilateral subarticular stenosis as well as right greater than left foraminal stenosis at the L4-5 level from a combination of grade 2 anterolisthesis, disc bulge, facetdegeneration, and ligamentum flavum redundancy. There is associated nerve root crowding and the suggestion of enhancement of the nerve roots which may reflect arachnoiditis. XR L SPINE AP AND LATERAL - 04/12/2023 1:31 pm Five [id number] lumbar type vertebral bodies. No fracture. Mild levoscoliosis. Grade 2 anterolisthesis of L4 on L5. Moderate degenerative disc disease at L4-5 and L5-S1 with disc height loss andendplate osteophyte formation, mildly progressed. Mild to moderate facet arthropathy in the mid to l ower lumbar spine. The SI joints are intact. Soft tissues are grossly unremarkable. IMPRESSION Multilevel lumbar degenerative change and grade 2 anterolisthesis of L4 on L5. No acute findings. ASSESSMENT: Lumbar radicular pain Spinal stenosis with neurogenic claudication PLAN: Progressive low back pain with R > L LE radiculopathy despite conservative care. Describes neurogenic claudication. Recent surgical consultation, requesting consideration of MARIELY. Reviewed L spine xray 04/12/23 - mild scoliosis, grade 2 listhesis L4/5, mild to moderate facet arthropathy which seems to have progressed, no acute compression changes. Reviewed L spine MRI 06/08/23 - grade 2 listhesisL4/5 with disc bulge and facet arthropathy causing severe central stenosis with R > L foraminal narrowing, mild foraminal narrowing L3/4, ??? Arachnoiditis. Discussed MARIELY using fluoroscopy. Risks including, but not limited to epidural hematoma, infection, worsening pain, failure to alleviate pain, nerve injury and possible steroid side effects were reviewed. Pre-procedure instructions reviewed, reiterated need for transfer driver, no prescription medication holds. Due to severity and duration of symptoms, will schedule MARIELY L5/S1 - defer L4/5 due to degree of central stenosis. Follow up six weeks. Tanya Rogel PA-C 06/28/2023 documented in this encounter Nursing Notes * Annalisa Hu LPN - 06/28/2023 12:27 PM EDT Patient presents with low back and R leg pain for years but worse in the last 6months Has done PT 3times in past-no relief, just started with a new therapist this week Does strength training twice a week, rides bike/walking Difficulty sleeping MRI in chart Unable to take NSAIDS due to kidney disease Gabapentin was denied by insurance documented in this encounter Plan of Treatment Upcoming Encounters Date Type Department Care Team (Latest Contact Info) Description 08/01/2023 10:05 AM EDT Hospital Encounter [facility], Operating Room [facility] [address] [place] [phone] Leighton Blanco, DO [address] [place] [phone] 08/01/2023 10:05 AM EDT - 08/01/2023 10:30 AM EDT Surgery OR [facility], Operating Room [facility] [address] [place] [phone] Leighton Blanco, DO [address] [place] [phone] INJECTION SPINE LUMBAR OR SACRAL 08/07/2023 8:00 AM EDT Office Visit General Internal Medicine [facility] [address] [place] [address] Saida Maravilla MD [address] [place] [address] 08/09/2023 11:30 AM EDT Imaging Radiology [address] [place] [address] 11/01/2023 1:20 PM EDT Office Visit Dermatology [facility] [address] [place] [address] Essie Bryan PA-C [address] [place] [phone] Scheduled Orders Name Type Priority Associated Diagnoses Orde r Schedule INJECT DX/THER SUBSTANCE INTERLAMINAR LUMBAR/SACRAL W IMAGE GUIDE Procedures Routine Lumbar radicular pain Spinal stenosis of lumbar region with neurogenic claudication Expected: 07/29/2023 (Approximate), Expires: 07/28/2024 Scheduled Procedures Name Priority Associated Diagnoses Date/Ti me INJECTION SPINE LUMBAR OR SACRAL Lumbar radiculopathy 08/01/2023 10:05 AM EDT COLONOSCOPY FLEXIBLE PROXIMAL DIAGNOSTIC Recall History of colonic polyps Health Maintenance Due Date Last Done Comments Zoster Vaccines (1 of 2) 02/08/1998 Depression Screening 07/28/2021 07/28/2020 COVID-19 Vaccine (3 - 2022- season) 2022 06/01/2020, 04/27/2020 Influenza Vaccine (FLU shot) (#1) 2022 01/15/2020, 01/13/2019, 12/06/2017, Additional history exists Albumin/Creatinine Ratio 08/04/2023 023, 08/02/2021, 07/29/2020, Additional history exists CKD HGB USE SMARTSET 65923 08/04/202308/03, 08/02/2021, 07/29/2020, Additional history exists CKD PHOS USE SMARTSET 06075 08/04/2023 05/0 07/2022, 08/02/2021, 07/29/2020 GFR 10/11/2023 [...] this encounter Medical Devices Implanted Type Area Core Measures Abstractor Device Identifier Shelf Expiration Date Model / Serial / Lot Hemostatic Clip Res 235cm - [id number] Implanted:Qty: 1 on 01/09/2023 by Jami Mccann MD at ENDOSCOPY [facility] : [facility]COPY 06/01/2025 [id number] / / [id number] documented as of this encounter Visit Diagnoses Diagnosis Lumbar radicular pain- Primary Thoracic or lumbosacral neuritis or radiculitis, unspecified Spinal stenosis of lumbar region with neurogenic claudication Spinal stenosis, lumbar region, with neurogenic claudication Lumbar radiculopathy Thoracic or lumbosacral neuritis or radiculitis, unspecified documented in this encounter Care Teams Cable Worker Helper Relationship Specialty Start Date End Date Saida Maravilla MD [address] [place] [address], [place] [address] PCP - General 01/17/08 documented as of this encounter
--- OUTSIDE RECORDS SUMMARY | 2023-07-14 04:33 | External Medical Summary | Summary of Care ---
Author Name Unknown Organization [facility] Address [address] [place] [address] Phone [phone] Care Team Providers Care Marine Cargo Specialist Name Role Phone Saida Maravilla MD Primary Care Provider + Reason for Visit * Reason Onset Date Comments Health Maintenance 03/08/2023 Encounter Details Date Type Department Care Team (Late st Contact Info) Description 03/08/2023 Telephone General Internal Medicine [facility] [place] [address] [facility] [place] [address] Saida Maravilla MD [address] [facility] [place] [address] Health Maintenance Allergies Active Allergy Reactions Criticality Noted Date Comments Penicillins 01/17/2008 Rash documented as of this encounter (statuses as of 03/08/2023) Medications Medication Sig Dispensed Refills Start Date [...] zoster vac recomb adjuvanted (SHINGRIX) 50 MCG/0.5ML injectionIndication s:Need for shingles vaccine Inject 0.5 mL into a large muscle now and repeat dose in 60 to 180 days. Please fax date this was given to our office. 1 Each 1 06/10/2019 Active Montelukast Sodium 10 MG Oral Tablet (Singulair)Indicati ons:Asthma, allergic TAKE 1 TABLET DAILY 90 Tablet 3 11/07/2022 Active Metamucil Fiber Oral Tablet Chewable Take 5 Tablets by mouth in the morning. 0 Active Albuterol Sulfate HFA 108 (90 Base) MCG/ACT Inhalation Aerosol SolutionIndications :Asthma in remission Inhale 2 Puffs by mouth every 4 hours as needed for Wheezing. 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 SUMMARY: Goal: Establish test [...] contact study staff at ; after hours Director Of Residence Life via the [facility] hospital tube making machine operator . Please contact study team before resolving/deleting from patients problem list. Study phone number: [phone]. Diagnosis changed due to Research Module. Go to Snapshot for study details. Encounter for examination fo r normal comparison and control in clinical research program 05/31/2017 12/01/2021 Overview: DO NOT DELETE - [facility] [place] Study: Project # [id number], Director Of Residence Life: Russ Sanders, MS, MPH. SUMMARY: Goal: Establish [...] contact study staff at ; after hours Director Of Residence Life via the [facility] hospital tube making machine operator . - Please contact study team before resolving/deleting from patients problem list. Study phone number: [phone]. Diagnosis changed due to Research Module. Go to [employer] for study details. Kidney disease, chronic, sta ge III (GFR 30-59 ml/min) 01/10/2016 02/12/2020 Overview: Per CKD protocol #1 Status asthmaticus 4 documented as of this encounter (statuses as of 03/08/2023) Immunizations Name Administration Dates Next Due COVID-19 mRNA, LNP-s, No Pre serve, 2-Dose Series (Moderna) 06/01/2020,04/27/2020 DTaP Dipth/Tet/Acell Pertussis (Infanrix), Peds 10/31/2008 HEP A - Hepatitis A (Adult > 18 yrs) 08/24/2009 Pneumococcal Conjugate Vacc, 13 Valent (Prevnar) 08/05/2015 Pneumococcal Polysaccharide PPV23 (Pneumovax) 08/10/2016 SEASONAL INFLUENZA, PF, 6 M & Above, IM , (FLULAVAL or FLUZONE) 12/06/2017,02/14/2017 02/14/2018 Season Influenza, Quad, PF, Adjuvanted, 65+ Yrs, IM (FLUAD) 01/15/2020 Seasonal Influenza, Split, I IV3, With Preserve, [...] encounter Miscellaneous Notes * Telephone Encounter - Diamond Lujan LPN - 03/08/2023 2:48 PM EST Care Gaps Comprehensive Care Outreach Last Office/Telemedicine Visit: 08/03/2022 (in office), 09/27/2020 (telemedicine) Next Office Visit: 08/07/2023 Hemoglobin AIC Results: Lab Results Component Value Date/Time HEMOGLOBIN A1C - [facility] 5.4 07/29/2020 07:14 AM HEMOGLOBIN A1C - [facility] 5.1 08/11/2016 07:46 AM HEMOGLOBIN A1C - [facility] 5.3 08/05/2015 09:26 AM HEMOGLOBIN A1C - [facility] 5.2 01/31/2011 09:11 AM Reviewed Health Maintenance below: Health Maintenance Topic Date Due Zoster Vaccines (1 of 2) Never done Depression Screening 07/28/2021 Influenza Vaccine (FLU shot) (1) 12/01/2022 COVID-19 Vaccine (3 - season) 2022 GFR 02/03/2023 Albumin/Creatinine Ratio 08/04/2023 CKD HGB USE SMARTSET 17380 08/04/2023 CKD PHOS USE SMARTSET 24956 08/04/2023 Labs add lipid Outreach Action Taken: Unable to reach won't ring through no message comes on documented in this encounter Plan of Treatment Upcoming Encounters Date Type Department Care Team (Late st Contact Info) Description 07/02/2023 10:15 AM EDT Office Visit Dermatology [facility] [address] [facility] [place] [address] Tess Mario MD [address] [place] [address] 08/07/2023 8:00 AM EDT Office Visit General Internal Medicine [facility] [address] [facility] [place] [address] Saida Maravilla MD [address] [facility] [place] [address] 08/09/2023 11:30 AM EDT Imaging Radiology [facility] [facility] [address] [facility] [place] [address] Scheduled Procedures Name Priority Associated Diagnoses Date/Ti [...] Additional history exists CKD HGB USE SMARTSET 86357 08/04/202308/03, 08/02/2021, 07/29/2020, Additional history exists CKD PHOS USE SMARTSET 00937 08/04/2023 05/0 07/2022, 08/02/2021, 07/29/2020 DXA Scan [...] this encounter Medical Devices Implanted Type Area Communication Manager Device Identifier Shelf Expiration Date Model / Serial / Lot Hemostatic Clip Res 235cm - [id number] Implanted:Qty: 1 on 01/09/2023 by Jami Mccann MD at [facility]COPY [facility] : ENDOSCOPY 06/01/2025 [id number] / / [id number] documented as of this encounter Care Teams Marine Cargo Specialist Relationship Specialty Start Date End Date Saida Maravilla MD [address] [place] [address] PCP - General 01/17/08 documented as of this encounter
--- OUTSIDE RECORDS SUMMARY | 2023-07-14 04:33 | External Medical Summary ---
Author Name Unknown Address Unknown Organization K09:[facility] [place] [address] Laboratory Report Ordering Provider Test Date Status LYNETTE SMITH 04/12/2023 13:22:26 Final Observation Date Value Abnormality Reference (Units ) Status BUN 04/12/2023 13:22:26 21 Above high normal 6-20 (mg/dL) Final Creatinine 04/12/2023 13:22:26 1.2 Above high normal 0.5-1.0 (mg/dL) Final Glomerular filtration rate/1.73 sq M.predicted [Volume Rate/Area] in Serum, Plasma or Blood by Creatinine-based formula (CKD-EPI) 04/12/2023 13:22:26 46 Below low normal >=60 (mL/min) Final eGFR is calculated based on the CKD-EPI 2020 equation SODIUM 04/12/2023 13:22:26 138 135-146 (m mol/L) Final Potassium 04/12/2023 13:22:26 5.3 Above high normal 3. 5-5.1 (mmol/L) Final Cl 04/12/2023 13:22:26 101 98-107 (mm ol/L) Final CO2 04/12/2023 13:22:26 27 22-32 (mmo l/L) Final Anion gap 04/12/2023 13:22:26 10 7-15 (mmol /L) Final Glucose 04/12/2023 13:22:26 111 70-120 (mg /dL) Final Calcium 04/12/2023 13:22:26 10.1 8.4-10.2 ( mg/dL) Final Performing Location [facility] [place] [address]
--- OUTSIDE RECORDS SUMMARY | 2023-07-14 04:33 | External Medical Summary | Summary of Care ---
Author Name Unknown Organization [facility] Address [address] [place] [address] Phone [phone] Care Team Providers Care School Community Relations Coordinator Name Role Phone Luis Maravilla MD Primary Care Provider + Reason for Referral * Evaluate & Treat - Unlimited Visits (Within 10 days (routine)) - Pending Review Specialty Diagnoses / Procedures Referred By Contpatrick t Referred To Contact Physical Therapy / Physical Medicine And Rehab Diagnoses Chronic left-sided low back pain with left-sided sciatica Luis Maravilla MD [address] [facility] [place], [place] [address] Referral ID Status Reason Start Date Expiration Date Visits Requested Visits Authorized [id number] Pending Review Specialty Services Required 04/12/[phone] Question Answer Referral Priority Within 10 days (routine) Where should this appointment be scheduled? [facility] Comments Worsening left sciatica. Thanks. 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 SUMMARY: Goal: Establish [...] contact study staff at ; after hours Clin Tech via the [facility] hospital filtration plant operator . Please contact study team before resolving/deleting from patients problem list. Study phone number: [phone]. Diagnosis changed due to Research Module. Go to Snapshot for study details. Encounter for examination fo r normal comparison and control in clinical research program 05/31/2017 12/01/2021 Overview: DO NOT DELETE - [employer] DETECT Study: Project # [id number], Clin Tech: Russ Sanders, MS, MPH. SUMMARY: Goal: [...] contact study staff at ; after hours Clin Tech via the [facility] hospital filtration plant operator . - Please contact study team before resolving/deleting from patients problem list. Study phone number: [phone]. Diagnosis changed due to Research Module. Go [...] as of this encounter Progress Notes * Luis Maravilla MD - 04/12/2023 12:21 PM EST Images from the original note were not included. History of Present Illness Samantha Landeros is a 73 year old female that presents for Acute Pt states her backpain is getting worse with radiation to lower leg, had done PT, does take tylenolonly as needed. Have tried Lidocaine patch. No urinary s/s. Prefers starting statin. Discussed labs, diet. Denies any chestpain/sob/palpitation/swealling in the legs. Physical Exam There were no vitals filed for this visit. BP Readings from Last 3 Encounters: 01/09/23 151/70 08/03/22 116/62 12/28/21 112/60 Wt Readings from Last 3 Encounters: 01/03/23 63.7 kg (140 lb 6.4 oz) 08/03/22 63.7 kg (140 lb 6.4 oz) 12/28/21 66.4 kg (146 lb 6.4 oz) BMI Readings from Last 3 Encounters: 01/03/23 24.10 kg/m 08/03/22 24.10 kg/m 12/28/21 25.13 kg/m Ht Readings from Last 3 Encounters: 01/03/23 1.626 m (5' 4") 08/03/22 1.626 m (5' 4") 12/28/21 1.626 m (5' 4") I have reviewed the following results: BMP Assessment and Plan Chronic left-sided low back pain with left-sided sciatica (Primary) - XR L SPINE AP AND LATERAL; Future; Expected date: 04/12/2023 Advised PT. Start Gabapentin. Stage 3a chronic kidney disease (HCC) Avoid Nsaids. Chronic left-sided low back pain with left-sided sciatica (Primary) - XR L SPINE AP AND LATERAL; Future; Expected date: 04/12/2023 - PHYSICAL THERAPY REFERRAL OP Stage 3a chronic kidney disease (HCC) - BASIC METABOLIC PANEL; Future; Expected date: 04/12/2023 Hyperlipidemia with target LDL less than 100 - LDL CHOLESTEROL (DIRECT MEASURE); Future; Expected date: 04/12/2023 - ALT; Future; Expected date: 04/12/2023 Agreeable to start crestor if needed. We recommended last time. Other orders - start Gabapentin 100 MG Oral Capsule (Neurontin); One pill at bedtime for 5 days then 2 pills at bedtime for 5 days then continue 3 pills at bedtime. Wrap-Up Time: I spent a total of 20-29 minutes (exact time 20 mins) on the date of service in preparation, delivery, and documentation of the care provided to Samantha Landeros excluding any time spent in the performanceof separately billed services. Telemedicine: Patient location: HOME. I was in a hospital or clinic location. After connecting through [employer],patient was verified with two unique identifiers. Patient (or authorized legal client service representative) was then informed that this was a Telemedicine visit and being conducted confidentially over secure lines. Methods to assure confidentiality were taken. Patient acknowledged consent and understanding of pr ivacy and security of the Telemedicine visit. The patient agreed to participate. documented in this encounter Nursing Notes * Yesy Beckham LPN - 04/12/2023 12:05 PM EST Pt presents today for low back sciatic pain. Impacting her sleep Pain can go down both legs or either or Has been to PT. Does strength training 2 times a week Had same issue in 2020 & had x-ray Has been ongoing since January Discuss statin meds documented in this encounter Miscellaneous Notes * Addendum Note - Luis Maravilla MD - 04/12/2023 12:32 PM ESTAddended by: LUIS MARAVILLA on: 04/12/2023 12:32 PM Modules accepted: Orders, Level of Service documented in this encounter Plan of Treatment Upcoming Encounters Date Type Department Care Team (Late st Contact Info) Description 07/02/2023 10:15 AM EDT Office Visit Dermatology [facility] [address] [facility] [place] [address] Tess Mario MD 08/07/2023 8:00 AM EDT Office Visit General Internal Medicine [facility] [address] [facility] [place] [address] [facility] [address] 08/09/2023 11:30 AM EDT Imaging Radiology [address], [place] [address] [facility] [place] [address] Scheduled Orders Name Type Priority Associated Diagnoses Orde r Schedule XR L SPINE AP AND LATERAL Medical Imaging Routine Chronic left-sided low back pain with left-sided sciatica Expected: 04/12/2023, Expires: 05/13/2024 LDL CHOLESTEROL (DIRECT MEASURE) Lab Routine Hyperlipidemia with target LDL less than 100 Expected: 04/12/2023 (Approximate), Expires: 04/11/2024 ALT Lab Routine Hyperlipidemia with target LDL less than 100 Expected: 04/12/2023 (Approximate), Expires: 04/11/2024 BASIC METABOLIC PANEL Lab Routine Stage 3a chronic kidney disease (HCC) Expected: 04/12/2023 (Approximate), Expires: 04/11/2024 Scheduled Procedures Name Priority Associated Diagnoses Date/Ti me COLONOSCOPY FLEXIBLE PROXIMA L DIAGNOSTIC Recall History of colonic polyps Scheduled Referrals Name Type Priority Associated Diagnoses Orde r Schedule PHYSICAL THERAPY REFERRAL OP Referral Within 10 days (routine) Chronic left-sided low back pain with left-sided sciatica Ordered: 04/12/2023 Health Maintenance Due Date Last Done Comments Zoster Vaccines (1 of 2) 02/08/1998 Depression Screening 07/28/2021 07/28/2020 COVID-19 Vaccine ( season) 2022 06/01/2020, 04/27/2020 Influenza Vaccine (FLU shot) (#1) 2022 01/15/2020, 01/13/2019, 12/06/2017, Additional history exists GFR 02/03/2023 08/03/2022, 050 05/2021, 07/29/2020, Additional history exists Albumin/Creatinine Ratio 08/04/2023 023, 08/02/2021, 07/29/2020, Additional history exists CKD HGB USE SMARTSET 20784 08/04/202308/03, 08/02/2021, 07/29/2020, Additional history exists CKD PHOS USE SMARTSET 43087 08/04/2023 050 07/2022, 08/02/2021, 07/29/2020 DXA Scan 09/06/2026 09/06/2021, [...] this encounter Medical Devices Implanted Type Area Supply Specialist Device Identifier Shelf Expiration Date Model / Serial / Lot Hemostatic Clip Res 235cm - [id number] Implanted:Qty: 1 on 01/09/2023 by Jami Mccann MD at ENDOSCOPY [facility] [employer] : ENDOSCOPY 06/01/2025 [id number] / / [id number] documented as of this encounter Visit Diagnoses Diagnosis Chronic left-sided low back pain with left-sided sciatica- Primary Stage 3a chronic kidney disease (HCC) Hyperlipidemia with target LDL less than 100 Other and unspecified hyperlipidemia documented in this encounter Care Teams School Community Relations Coordinator Relationship Specialty Start Date End Date Luis Maravilla MD [address] [place] [address] PCP - General 01/17/08 documented as of this encounter
--- OUTSIDE RECORDS SUMMARY | 2023-07-14 04:33 | External Medical Summary ---
Author Name Unknown Address Unknown Organization K09[facility] [place] [address] Laboratory Report Ordering Provider Test Date Status LYNETTE SMITH 04/12/2023 13:22:26 Final Observation Date Value Abnormality Reference (Units ) Status ALT (Alanine aminotransferase) 04/12/2023 13:22:26 18 10-35 (U/L) Final Performing Location [facility] [place] [address]
--- OUTSIDE RECORDS SUMMARY | 2023-07-14 04:33 | External Medical Summary | Summary of Care ---
Author Name Unknown Organization [facility] Address [address] [place] [address] Phone [phone] Care Team Providers Care Medical Research Assistant Name Role Phone Luis Maravilla MD Primary Care Provider + Reason for Visit * Reason Comments eRx-Medication Refill Encounter Details Date Type Department Care Team (Late st Contact Info) Description 02/15/2023 Refill General Internal Medicine [facility] [place] [address] [place] [address] Luis Maravilla MD [address] [place] [address] Asthma in remission Allergies Active Allergy Reactions Criticality Noted Date Comments Penicillins 01/17/2008 Rash documented as of this encounter (statuses as of 02/16/2023) Medications Medication Sig Dispensed Refills Start Date End Date Status MULTIVITAMINS PO CAPS one pill each day 0 Active GLUCOSAMINE CHONDR 500 COMPLEX PO CAPS one pill each day 0 Ac tive CALCIUM 500 MG PO TABS one pill each day 0 Active Coenzyme Q10 200 MG Capsule Take 1 Capsule by mouth in the morning. 0 12/06/2017 Active zoster vac recomb adjuvanted (SHINGRIX) 50 MCG/0.5ML injectionIndicat ions:Need for shingles vaccine Inject 0.5 mL into a large muscle now and repeat dose in 60 to 180 days. Please fax date this was given to our office. 1 Each 1 06/10/2019 Active Montelukast Sodium 10 MG Oral Tablet (Singulair)Indic ations:Asthma, allergic TAKE 1 TABLET DAILY 90 Tablet 3 11/07/2022 Active Metamucil Fiber Oral Tablet Chewable Take 5 Tablets by mouth in the morning. 0 Active Albuterol Sulfate HFA 108 (90 Base) MCG/ACT Inhalation Aerosol SolutionIndicati ons:Asthma in remission Inhale 2 Puffs by mouth every 4 hours as needed for Wheezing. 54 g 1 01/09/2023 Active Budesonide-Formo terol Fumarate 160-4.5 MCG/ACT Inhalation Aerosol (Symbicort)Indic ations:Asthma in remission USE 2 INHALATIONS TWICE A DAY 30.6 g 1 02/16/2023 Active Symbicort 160-4.5 MCG/ACT Inhalation Aerosol (budesonide-form oterol)Indicatio ns:Asthma in remission USE 2 INHALATIONS TWICE A DAY 30.6 g 3 09/26/2021 3 Discontinued documented as of this encounter (statuses as of 02/16/2023) Active Problems Problem Noted Date Diagnosed Date Stage 3a chronic kidney disease 2020 Overview: Per CKD protocol Asthma in remission 06/10/2019 Hx of nonmelanoma skin cancer 03/15/2018 Overview: SCCIS R rastafarian near lateral brow 03/2018 Hx of actinic keratosis 11/03/2011 Allergic rhinitis Menopause documented as of this encounter (statuses as of 02/16/2023) Resolved Problems Problem Noted Date Diagnosed Date Resolved Date Encounter for examination fo r normal comparison and control in clinical research program 05/31/2017 11/03/2019 Overview: DO NOT DELETE [facility] DETECT Study: Project # [id number], Auger Press Operator: Marin Wise, PhD. SUMMARY: Goal: Establish test [...] contact study staff at ; after hours Auger Press Operator via the [facility] hospital amusement equipment operator . Please contact study team before resolving/deleting from patients problem list. Study phone number: [phone]. Diagnosis changed due to Research Module. Go to Snapshot for study details. Encounter for examination fo r normal comparison and control in clinical research program 05/31/2017 12/01/2021 Overview: DO NOT DELETE - [facility] Study: Project # [id number], Auger Press Operator: Russ Sanders, MS, MPH. SUMMARY: Goal: Establish [...] contact study staff at ; after hours Auger Press Operator via the [facility] hospital amusement equipment operator . - Please contact study team before resolving/deleting from patients problem list. Study phone number: [phone]. Diagnosis changed due to Research Module. Go to [employer] for study details. Kidney disease, chronic, sta ge III (GFR 30-59 ml/min) 01/10/2016 02/12/2020 Overview: Per CKD protocol #1 Status asthmaticus 4 documented as of this encounter (statuses as of 02/16/2023) Immunizations Name Administration Dates Next Due COVID-19 [...] encounter Miscellaneous Notes * Telephone Encounter - Leland Reed [facility] - 02/16/2023 11:57 AM EST Signed Prescriptions: Disp Refills Budesonide-Formoterol Fumarate 160-4.5 MCG*30.6 g 1 Sig: USE 2 INHALATIONS TWICE A DAYAuthorizing Provider: LUIS MARAVILLA User: LELAND REED M documented in this encounter Plan of Treatment Upcoming Encounters Date Type Department Care Team (Late st Contact Info) Description 07/02/2023 10:15 AM EDT Office Visit Dermatology [facility] [address] [place] [address] Tess Mario MD [address] [place] [address] [place] [address] 08/07/2023 8:00 AM EDT Office Visit General Internal Medicine [facility] [address] [place] [address] Luis Maravilla MD [address] [place] [address] 08/09/2023 11:30 AM EDT Imaging Radiology [address] [facility] [place] [address] Scheduled Procedures Name Priority Associated Diagnoses Date/Ti [...] Additional history exists CKD HGB USE SMARTSET 55714 08/04/202308/03, 08/02/2021, 07/29/2020, Additional history exists CKD PHOS USE SMARTSET 94175 08/04/2023 05/0 07/2022, 08/02/2021, 07/29/2020 DXA Scan [...] this encounter Medical Devices Implanted Type Area [place] Specialist Device Identifier Shelf Expiration Date Model / Serial / Lot Hemostatic Clip Res 235cm - [id number] Implanted:Qty: 1 on 01/09/2023 by Jami Mccann MD at ENDOSCOPY [facility] : ENDOSCOPY 06/01/2025 [id number] / / [id number] documented as of this encounter Visit Diagnoses Diagnosis Asthma in remission Unspecified asthma documented in this encounter Care Teams Medical Research Assistant Relationship Specialty Start Date End Date Luis Maravilla MD [address] [place] [address] PCP - General 01/17/08 documented as of this encounter
--- OUTSIDE RECORDS SUMMARY | 2023-07-14 04:33 | External Medical Summary | Summary of Care ---
Author Name Unknown Organization [facility] Address [address] [place] [address] Phone [phone] Care Team Providers Care Product Owner Name Role Phone Saida Maravilla MD Primary Care Provider + Reason for Visit * Reason Onset Date Comments Advice 03/06/2023 Encounter Details Date Type Department Care Team (Late st Contact Info) Description 03/06/2023 Telephone General Internal Medicine [facility] [place] [address] [place] [address] Saida Maravilla MD [address] [facility] [place] [address] Advice Allergies Active Allergy Reactions Criticality Noted Date Comments Penicillins 01/17/2008 Rash documented as of this encounter (statuses as of 03/07/2023) Medications Medication Sig Dispensed Refills Start Date [...] as of this encounter (statuses as of 03/07/2023) Active Problems Problem Noted Date Diagnosed Date Stage 3a chronic kidney disease 2020 Overview: Per CKD protocol Asthma in remission 06/10/2019 Hx of nonmelanoma skin cancer 03/15/2018 Overview: SCCIS R holiness near lateral brow 03/2018 Hx of actinic keratosis 11/03/2011 Allergic rhinitis Menopause documented as of this encounter (statuses as of 03/07/2023) Resolved Problems Problem Noted Date Diagnosed Date Resolved Date Encounter for examination fo r normal comparison and control in clinical research program 05/31/2017 11/03/2019 Overview: DO NOT DELETE [facility] DETECT Study: Project # [id number], Space Scheduler: Marin Wise, PhD. SUMMARY: Goal: Establish test [...] contact study staff at ; after hours Space Scheduler via the [facility] hospital video presentation operator . Please contact study team before resolving/deleting from patients problem list. Study phone number: [phone]. Diagnosis changed due to Research Module. Go to Snapshot for study details. Encounter for examination fo r normal comparison and control in clinical research program 05/31/2017 12/01/2021 Overview: DO NOT DELETE - [facility] Study: Project # [id number], Space Scheduler: Russ Sanders, MS, MPH. SUMMARY: Goal: Establish [...] contact study staff at ; after hours Space Scheduler via the [facility] hospital video presentation operator . - Please contact study team before resolving/deleting from patients problem list. Study phone number: [phone]. Diagnosis changed due to Research Module. Go to [facility] for study details. Kidney disease, chronic, sta ge III (GFR 30-59 ml/min) 01/10/2016 02/12/2020 Overview: Per CKD protocol #1 Status asthmaticus 4 documented as of this encounter (statuses as of 03/07/2023) Immunizations Name Administration Dates Next Due COVID-19 [...] encounter Miscellaneous Notes * Telephone Encounter - Binh Truong CMA - 03/07/2023 9:49 AM EST Patient aware and verbalized understanding * Telephone Encounter - Saida Maravilla MD - 03/06/2023 4:41 PM EST I do not think its pink eye or bacterial infection but viral conjuctivitis with some allergic component. Advise OTC Zaditor 2 drops three times daily as needed for few days. Let us know if any ongoing issues. Also see her eye doctor. * Telephone Encounter - Yesy Beckham LPN - 03/06/2023 9:30 AM EST Called and spoke with pt. States that she had a cold last week - congestion, sore throat, cough. Still has some of these symptoms lingering - cough & congestion. No color to mucous Did take 2 at home covid tests - both negative Eyes started yesterday with left & right started this morning Eyes are itchy & puffy. Sangrey & crusted over Sometimes vision is blurry * Telephone Encounter - Saida Maravilla MD - 03/06/2023 8:25 AM EST If its both eyes, may be viral or allergic. Any other symptoms? Itching? Pain? Sinus s/s or sorethroat with runny nose? Vision change? * Telephone Encounter - Marly Hensley OSA - 03/06/2023 8:05 AM EST Pt calling to request a script for pink eye. Both eyes crusty and fluid. documented in this encounter Plan of Treatment Upcoming Encounters Date Type Department Care Team (Late st Contact Info) Description 07/02/2023 10:15 AM EDT [facility] [place] [address] [place] [address] Tess Mario MD [address] [place] [address] 08/07/2023 8:00 AM EDT Office Visit General Internal Medicine [facility] [place] [address] [place] [address] Saida Maravilla MD [address] [place] [address] 08/09/2023 11:30 AM EDT Imaging Radiology [facility], [place] [address] [place] [address] Scheduled Procedures Name Priority Associated Diagnoses Date/Ti [...] Additional history exists CKD HGB USE SMARTSET 11102 08/04/202308/03, 08/02/2021, 07/29/2020, Additional history exists CKD PHOS USE SMARTSET 79491 08/04/2023 050 07/2022, 08/02/2021, 07/29/2020 DXA Scan [...] this encounter Medical Devices Implanted Type Area Ordnance Officer Device Identifier Shelf Expiration Date Model / Serial / Lot Hemostatic Clip Res 235cm - [id number] Implanted:Qty: 1 on 01/09/2023 by Jami Mccann MD at [facility]COPY [facility] [employer] : ENDOSCOPY 06/01/2025 [id number] / / [id number] documented as of this encounter Care Teams Product Owner Relationship Specialty Start Date End Date Saida Maravilla MD [address] [facility] [place] [address] PCP - General 01/17/08 documented as of this encounter
--- OUTSIDE RECORDS SUMMARY | 2023-07-14 04:33 | External Medical Summary | Summary of Care ---
Author Name Unknown Organization [facility] Address [address] [place] [address] Phone [phone] Care Team Providers Care Metalworking Specialist Name Role Phone Luis Maravilla MD Primary Care Provider + Reason for Referral * Evaluate & Treat - Unlimited Visits (Within 10 days (routine)) - Pending Review Specialty Diagnoses / Procedures Referred By Contpatrick t Referred To Contact Physical Therapy / Physical Medicine And Rehab Diagnoses Chronic left-sided low back pain with left-sided sciatica Luis Maravilla MD [address] [facility], [place] [address] Referral ID Status Reason Start Date Expiration Date Visits Requested Visits Authorized [id number] Pending Review Specialty Services Required 04/12/[phone] Question Answer Referral Priority Within 10 days (routine) Where should this appointment be scheduled? [facility] Comments Worsening left sciatica. Thanks. Reason for Visit * Reason Comments Acute Encounter Details Date Type Department Care Team (Late st Contact Info) Description 04/12/2023 12:20 PM EST Telemedicine General Internal Medicine [facility]o Vas[facility] [place] [address] [place] [address] Luis Maravilla MD [address] [place] [address] Chronic left-sided low back pain with left-sided [...] nonmelanoma skin cancer 03/15/2018 Overview: SCCIS R protestant near lateral brow 03/2018 Hx of actinic keratosis 11/03/2011 Allergic rhinitis Menopause documented as of this encounter (statuses as of 04/12/2023) Resolved Problems Problem Noted Date Diagnosed Date Resolved Date Encounter for examination fo r normal comparison and control in clinical research program 05/31/2017 11/03/2019 Overview: DO NOT DELETE [employer] [facility] Study: Project # [id number], Tools Administrator: Marin Wise, PhD. SUMMARY: Goal: Establish test [...] contact study staff at ; after hours Tools Administrator via the [facility] hospital six color press operator . Please contact study team before resolving/deleting from patients problem list. Study phone number: [phone]. Diagnosis changed due to Research Module. Go to Snapshot for study details. Encounter for examination fo r normal comparison and control in clinical research program 05/31/2017 12/01/2021 Overview: DO NOT DELETE - [employer] DETECT Study: Project # [id number], Tools Administrator: Russ Sanders, MS, MPH. SUMMARY: Goal: Establish [...] contact study staff at ; after hours Tools Administrator via the [facility] hospital six color press operator . - Please contact study team before resolving/deleting from patients problem list. Study phone number: [phone]. Diagnosis changed due to Research Module. Go [...] hospital or clinic location. After connecting through [employer],patient was verified with two unique identifiers. 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) was then informed that this was [...] 07/02/2023 10:15 AM EDT Office Visit Dermatology [facility] [address] [place] [address] Tess Mario MD 08/07/2023 8:00 AM EDT Office Visit General Internal Medicine [facility] [address] [facility] [place] [address] Luis [facility] [address] 08/09/2023 11:30 AM EDT Imaging Radiology [address], [place] [address] [facility] [place] [address] Scheduled Orders Name Type Priority Associated Diagnoses [...] Additional history exists CKD HGB USE SMARTSET 31882 08/04/202308/03, 08/02/2021, 07/29/2020, Additional history exists CKD PHOS USE SMARTSET 82970 08/04/2023 050 07/2022, 08/02/2021, 07/29/2020 DXA Scan [...] this encounter Medical Devices Implanted Type Area Alarm Mechanism Adjuster Device Identifier Shelf Expiration Date Model / Serial / Lot Hemostatic Clip Res 235cm - [id number] Implanted:Qty: 1 on 01/09/2023 by Jami Mccann MD at ENDOSCOPY [facility] : ENDOSCOPY 06/01/2025 [id number] / / [id number] documented as of this encounter Visit Diagnoses Diagnosis Chronic left-sided low back pain with left-sided sciatica- Primary Stage 3a chronic kidney disease (HCC) Hyperlipidemia with target LDL less than 100 Other and unspecified hyperlipidemia documented in this encounter Care Teams Metalworking Specialist Relationship Specialty Start Date End Date Luis Maravilla MD [address] [place] [address] PCP - General 01/17/08 documented as of this encounter
[2023-07-14 06:43] LABS: Basophils # (auto) 0.03 K/uL (0.00-0.20); Basophils % (auto) 0.3 %; Eosinophils # (auto) 0.02 K/uL (0.00-0.50); Eosinophils % (auto) 0.2 %; Hematocrit (blood only) 36.4 % (37.0-47.0); Hemoglobin 12.4 g/dl (12.0-16.0); Immature Granulocytes # (auto) 0.06 K/uL (0.01-0.20); Immature Granulocytes % (auto) 0.7 %; Lymphocytes # (auto) 1.34 K/uL (1.20-3.40); Lymphocytes % (auto) 15.4 %; Mean Corpuscular Hemoglobin 31.8 pg (25.0-34.0); Mean Corpuscular Hgb Conc 34.1 g/dL (32.0-36.0); Mean Corpuscular Volume 93.3 fL (80.0-100.0); Mean Platelet Volume 9.4 fL (9.4-12.4); Monocytes # (auto) 0.88 K/uL (0.11-0.59); Monocytes % (auto) 10.1 %; Neutrophils # (auto) 6.38 K/uL (1.40-6.50); Neutrophils % (auto) 73.3 %; Platelet Count 214 K/uL (130-400); RDW Coefficient of Variation 12.3 % (11.5-14.5); RDW Standard Deviation 41.7 fL (36.4-46.3); White Blood Count 8.71 K/ul (4.8-10.8)
[2023-07-14 07:08] LABS: Est GFR (African American) 35.6 ml/min; Est GFR (Non-African American) 30.7 ml/min; Potassium 4.8 mmol/L (3.5-5.1)
[2023-07-14] MEDS: MULTIVITAMIN TAB PO SCH (08:57)
[2023-07-14] MEDS ORDERED: methylPREDNISolone 4 MG TAB, 6 DAY TAPER PO SCH (11:00)
--- OUTSIDE RECORDS SUMMARY | 2023-07-14 11:49 | External Medical Summary | Summary of Care ---
Author Name Unknown Organization [facility] Address [address] [place] [address] Phone [phone] Care Team Providers Care Sales Operations Associate Name Role Phone Saida Maravilla MD Primary Care Provider + Reason for Visit * Reason Comments Other Pinched nerve in nec k Encounter Details Date Type Department Care Team ([facility] st Contact Info) Description 07/13/2023 9:30 AM EDT Convenient Care Visit [facility] [address] [place] [address] Margaret Ann PA-C [address] [facility] [place] [address] Pain in limb* Allergies Active Allergy Reactions Criticality Noted Date Comments Nsaids 06/28/2023 Unable to take due to kidney disease Penicillins 01/17/2008 Rash documented as of this encounter (statuses as of 07/13/2023) Medications Medication Sig Dispensed Refills Start Date [...] as of this encounter (statuses as of 07/13/2023) Active Problems Problem Noted Date Diagnosed Date Stage 3a chronic kidney disease 2020 Overview: Per CKD protocol Asthma in remission 06/10/2019 Hx of nonmelanoma skin cancer 03/15/2018 Overview: SCCIS R taoist near lateral brow 03/2018 Hx of actinic keratosis 11/03/2011 Allergic rhinitis Menopause documented as of this encounter (statuses as of 07/13/2023) Resolved Problems Problem Noted Date Diagnosed Date Resolved Date Encounter for examination fo r normal comparison and control in clinical research program 05/31/2017 11/03/2019 Overview: DO NOT DELETE [facility] DETECT Study: Project # [id number], Supervisor [employer]: Marin Wise, PhD. SUMMARY: Goal: Establish test [...] contact study staff at ; after hours Supervisor [employer] via the [facility] digital press operator . Please contact study team before resolving/deleting from patients problem list. Study phone number: [phone]. Diagnosis changed due to Research Module. Go to Snapshot for study details. Encounter for examination fo r normal comparison and control in clinical research program 05/31/2017 12/01/2021 Overview: DO NOT DELETE - [facility] Study: Project # [id number], Supervisor [employer]: Russ Sanders, MS, MPH. SUMMARY: Goal: Establish [...] contact study staff at ; after hours Supervisor [employer] via the [facility] digital press operator . - Please contact study team before resolving/deleting from patients problem list. Study phone number: [phone]. Diagnosis changed due to Research Module. Go to Snapshot for study details. Kidney disease, chronic, sta ge III (GFR 30-59 ml/min) 01/10/2016 02/12/2020 Overview: Per CKD protocol #1 Status asthmaticus 4 documented as of this encounter (statuses as of 07/13/2023) Immunizations Name Administration Dates Next Due COVID-19 [...] as of this encounter Progress Notes * Sonya Brito LPN - 07/13/2023 10:16 AM EDT Left without being seen - went to ER documented in this encounter Nursing Notes * Sonya Brito LPN - 07/13/2023 10:15 AM EDT Patient left without being seen and went to ER documented in this encounter Plan of Treatment Upcoming Encounters Date Type Department Care Team (Latest Contact Info) Description 07/14/2023 11:00 AM EDT Office Visit Family Practice [facility] [address] [place] [address] Tiffany Winchester DO [address] [place] [address] 08/01/2023 10:05 AM EDT Hospital Encounter [facility], Operating Room [facility] [address] [place] [phone] Leighton Blanco, [address] [place] [phone] 08/01/2023 10:05 AM EDT - 08/01/2023 10:30 AM EDT Surgery OR [facility], Operating Room [facility] [address] [place] [phone] Leighton Blanco, DO [address] [place] [address] INJECTION SPINE LUMBAR OR SACRAL 08/07/2023 8:00 AM EDT Office Visit General Internal Medicine [facility] Falcon [address] [place] [address] Saida Maravilla MD [address] [address] 08/09/2023 11:30 AM EDT Imaging Radiology [facility] [address] [place] [address] 11/01/2023 1:20 PM EDT Office Visit Dermatology [facility] [address] [place] [address] Essie Bryan PA-C [address] [place] [address] Scheduled Procedures Name Priority Associated Diagnoses Date/Ti me INJECTION SPINE LUMBAR OR SACRAL Lumbar radiculopathy 08/01/2023 10:05 AM EDT COLONOSCOPY FLEXIBLE PROXIMAL DIAGNOSTIC Recall History of colonic polyps Health Maintenance Due Date Last Done Comments Zoster Vaccines (1 of 2) 02/08/1998 Depression Screening 07/28/2021 07/28/2020 COVID-19 Vaccine ( season) 2022 06/01/2020, 04/27/2020 Albumin/Creatinine Ratio 08/04/2023 023, 08/02/2021, 07/29/2020, Additional history exists CKD HGB USE SMARTSET 77850 08/04/202308/03, 08/02/2021, 07/29/2020, Additional history exists CKD PHOS USE SMARTSET 10770 08/04/2023 05/0 07/2022, 08/02/2021, 07/29/2020 GFR 10/11/2023 04/12/2023, 05/0 07/2022, 08/02/2021, Additional history exists Influenza Vaccine (FLU shot) (Season Ended) 2023 01/15/2020, 01/13/2019, 12/06/2017, Additional history exists DXA Scan 09/06/2026 09/06/2021, [...] this encounter Medical Devices Implanted Type Area Cuff Matcher Device Identifier Shelf Expiration Date Model / Serial / Lot Hemostatic Clip Res 235cm - [id number] Implanted:Qty: 1 on 01/09/2023 by Jami Mccann MD at ENDOSCOPY [facility] : ENDOSCOPY 06/01/2025 [id number] / / [id number] documented as of this encounter Visit Diagnoses Diagnosis Pain in limb- Primary Lumbar radiculopathy Thoracic or lumbosacral neuritis or radiculitis, unspecified documented in this encounter Care Teams Sales Operations Associate Relationship Specialty Start Date End Date Saida Maravilla MD [address] [facility] [place] [address] PCP - General 01/17/08 documented as of this encounter
--- NOTE | 2023-07-14 12:17 | Electrocardiogram Report ---
Test Reason : Blood Pressure : / mmHG Vent. Rate : 049 BPM Atrial Rate : 049 BPM P-R Int : 178 ms QRS Dur : 078 ms QT Int : 482 ms P-R-T Axes : 071 -29 036 degrees QTc Int : 435 ms Sinus bradycardia Left axis deviation Septal infarct (cited on or before 30-NOV-2017) Abnormal ECG When compared with ECG of 13-JUL-2023 10:32, Premature ventricular complexes are no longer Present Confirmed by Radhames Lenz ([id number]) on 07/14/2023 12:16:54 PM Referred By: REFERRED SELF Confirmed By:Radhames Lenz
--- NOTE | 2023-07-14 12:32 | Hospitalist Progress Note ---
Date of Service July 14, 2023 Assessment & Plan (1) Neck pain: (2) Radicular pain of left upper extremity: Plan: Patient is 73-year-old female with PMH asthma, CKD III, lumbar spinal stenosis presented to ER with complaint of neck pain radiating to left arm for several days. C-Spine CT: No high-grade central canal stenosis. Degenerative changes include mild to moderate disc space narrowing at C6-C7. 4 mm anterolisthesis C7 on T1, likely secondary to severe facet arthrosis at this level. Moderate to severe degeneration at C1-C2. No acute fracture or subluxation. Multilevel neural foraminal narrowing is at least mild. CXR: no acute infiltrate EKG without acute ST elevations. Normal troponin. Will start Medrol Dosepak for possible cervical radiculopathy Continue heat application Tylenol schedule 1000mg three times a day (3) Elevated blood pressure reading: Plan: Blood pressure elevated on admission No prior diagnosis HTN Likely secondary to underlying pain/anxiety Continue to monitor blood pressure Recommended home blood pressure monitoring. Blood pressure elevation could likely be secondary to pain/anxiety (4) CKD (chronic kidney disease), stage III: Plan: Creatinine is slightly up trended to 1.6 today Baseline creatinine of 1.2-1.3 Encourage oral hydration Continue monitor BMP (5) Asthma: Plan: No signs exacerbation Continue home inhalers and montelukast DVT Prophylaxis Lovenox SQ Full Code as per discussion with pt Follows with Dr Maravilla for routine care Discussed with patient's at bedside. Answered questions/queries. Please note the above document was generated using voice recognition software. It may contain grammatical, syntax or spelling errors. Any formal questions or concerns about the content, text or information contained within the body of this dictation should be directly addressed to the provider for clarification Admission and Anticipated Discharge Date Admission Date: July 13, 2023 Subjective Patient seen and examined at bedside. She reports that her neck pain has improved compared to yesterday. Reports that the neck pain has started to come back today morning. No significant event overnight Review of Systems Review of Systems: All systems reviewed & are unremarkable except as noted in Subjective Physical Exam Physical Exam: Constitutional: Alert oriented x 3; not in distress. Respiratory: Bilateral vesicular breath sound. Cardiovascular: RRR, no murmur, no edema Vessels: no JVD or carotid bruit Chest: normal inspection of chest Abdomen: normal bowel sounds, soft, nontender, no hepatosplenomegaly Musculoskeletal: no cyanosis or clubbing, extremities motor strength 5/5. Neck nontender to palpation. Skin: no rashes, warm and dry normal turgor Neurologic: PERRL, EOMI, accommodation nl, no face palsy, no dysarthria CN's II- XI intact bilaterally and moves all extremities Psychiatric: A+Ox3, euthymic affect Results & Data Results & Data Vital Signs (Past 12 Hours) Vital Signs Temp Pulse Pulse Resp BP BP Pulse Ox 07/14/23 07:34 36.4 C L 53 L 16 134/63 97 07/14/23 07:33 52 L 07/14/23 02:57 36.5 C 60 18 106/54 L 96 O2 Del Method 07/14/23 07:34 Room Air 07/14/23 07:33 07/14/23 02:57 Room Air
[2023-07-14] MEDS: methylPREDNISolone 4 MG TAB PO SCH ×2 (12:57→20:52)
[2023-07-14] MEDS: ENOXAPARIN INJ 30 MG/0.3 ML SYR SQ SCH (17:41)
[2023-07-15 06:54] LABS: Basophils # (auto) 0.03 K/uL (0.00-0.20); Basophils % (auto) 0.4 %; Eosinophils # (auto) 0.01 K/uL (0.00-0.50); Eosinophils % (auto) 0.1 %; Hematocrit (blood only) 37.5 % (37.0-47.0); Hemoglobin 13.1 g/dl (12.0-16.0); Immature Granulocytes # (auto) 0.02 K/uL (0.01-0.20); Immature Granulocytes % (auto) 0.2 %; Lymphocytes # (auto) 1.03 K/uL (1.20-3.40); Lymphocytes % (auto) 12.5 %; Mean Corpuscular Hemoglobin 31.7 pg (25.0-34.0); Mean Corpuscular Hgb Conc 34.9 g/dL (32.0-36.0); Mean Corpuscular Volume 90.8 fL (80.0-100.0); Mean Platelet Volume 9.6 fL (9.4-12.4); Monocytes # (auto) 0.51 K/uL (0.11-0.59); Monocytes % (auto) 6.2 %; Neutrophils # (auto) 6.65 K/uL (1.40-6.50); Neutrophils % (auto) 80.6 %; Platelet Count 244 K/uL (130-400); RDW Coefficient of Variation 12.2 % (11.5-14.5); RDW Standard Deviation 40.5 fL (36.4-46.3); Red Blood Count 4.13 M/uL (4.20-5.40); White Blood Count 8.25 K/ul (4.8-10.8)
[2023-07-15 07:22] LABS: BUN Creatinine Ratio 21.8 (10-20); Calcium 9.3 mg/dl (8.6-10.3); Creatinine Clr Calc Pharmacy 32.9 ml/min; Est GFR (African American) 45.2 ml/min; Potassium 4.6 mmol/L (3.5-5.1)
[2023-07-15] MEDS: methylPREDNISolone 4 MG TAB PO SCH ×2 (07:58→21:49)
--- NOTE | 2023-07-15 10:44 | Orthopedic Consultation ---
Date of Consultation July 15, 2023 Assessment & Plan (1) Herniation of cervical intervertebral disc with radiculopathy: MRI of the cervical spine available for review. It does demonstrate evidence of a disc herniation with neuroforaminal disease C6-C7 on the left. Spinal cord is healthy. All other levels appear healthy. Assessment cervical radiculopathy. Plan at this time would like discussion today with the patient and her reviewing her clinical presentation and treatment options. At this point I would recommend her following up with interventional pain management this week if possible. A cervical epidural injection may provide relief. She understands that if these injections do not provide relief or only for short period of time a procedure may be warranted. History of Present Illness Reason for Consultation: P left arm radiculopathy Attending Physician: Ron Patel MD History of Present Illness This is a very pleasant 73-year-old female that presents with severe left arm pain consistent with cervical radiculopathy. She states that sitting present for about a week. She denies any specific trauma fall or event. The right upper extremity is asymptomatic. She is right-hand dominant. She is a very active woman and involved in physical training as well as walking up to 8 miles a day. She does have a history of lumbar spinal stenosis and is working with interventional pain management in regards to this. Allergies Allergy/AdvReac Type Severity Reaction Status Date / Time Penicillins Allergy Unknown CHILDHOOD Unverified 11/30/17 09:45 ALLERGY Home Medications Medication Instructions Recorded Confirmed Type albuterol sulfate 90 mcg/actuation 2 puff inhalation Q4H PRN 07/13/23 07/13/23 History aerosol inhaler Shortness Of Breath Or Wheezing budesonide-formoterol HFA 160 2 inh inhalation BID 07/13/23 07/13/23 History mcg-4.5 mcg/actuation aerosol inhaler (Symbicort) calcium carbonate 500 mg-vitamin 1 tab PO DAILY 07/13/23 07/13/23 History D3 10 mcg (400 unit) tablet (Calcium 500 + D) montelukast 10 mg tablet 10 mg PO DAILY 07/13/23 07/13/23 History multivitamin 1 tab PO DAILY 07/13/23 07/13/23 History Patient History Medical History CKD (chronic kidney disease), stage III Asthma Surgical History History of colonoscopy History of tubal ligation Family History Other Cancer Social History Smoking Status: Never smoker Hx Alcohol Use: No (quit in March) Hx Substance Use: No Preferred Language: Lithuanian Communication Ability: Effective Biomaterials Engineer Required: No Beliefs That Will Affect Care: None Current Living Situation: Spouse Other Information That Helps Us Care for You: No Feels Safe at Home: Yes Safety Concerns: Feels Safe At This Time Assistive Devices: None Physical Exam Physical Exam: On exam she is pleasant but no obvious distress. She is positive Spurling sign to the left. She exhibits no Julisa sign. She has plus 5 out of 5 grasp biceps triceps deltoids. Sensory appears to be intact. Results & Data Vital Signs (Past 12 Hours) Vital Signs Temp Pulse Pulse Resp BP Pulse Ox O2 Del Method 07/15/23 07:40 36.5 C 58 L 16 153/70 H 95 Room Air 07/15/23 07:17 48 L 07/15/23 02:10 36.8 C 61 16 155/70 H 96 Room Air 07/14/23 22:55 57 L
--- NOTE | 2023-07-15 12:43 | Hospitalist Progress Note ---
Date of Service July 15, 2023 Assessment & Plan (1) Neck pain: (2) Radicular pain of left upper extremity: Plan: Patient is 73-year-old female with PMH asthma, CKD III, lumbar spinal stenosis presented to ER with complaint of neck pain radiating to left arm for several days. C-Spine CT: No high-grade central canal stenosis. Degenerative changes include mild to moderate disc space narrowing at C6-C7. 4 mm anterolisthesis C7 on T1, likely secondary to severe facet arthrosis at this level. Moderate to severe degeneration at C1-C2. No acute fracture or subluxation. Multilevel neural foraminal narrowing is at least mild. CXR: no acute infiltrate EKG without acute ST elevations. Normal troponin. MRI cervical spine reviewed by orthospine; disc herniation with neuroforaminal disease C6-C7 on the left. Recommend interventional pain management at this p oint. Might require procedure if the injection did not provide relief. Will start Medrol Dosepak for possible cervical radiculopathy Appreciate orthospine input. Will consult pain management for possible intervention for tomorrow. Continue heat application Tylenol schedule 1000mg three times a day (3) Elevated blood pressure reading: Plan: Blood pressure elevated on admission No prior diagnosis HTN Likely secondary to underlying pain/anxiety Continue to monitor blood pressure Recommended home blood pressure monitoring. Blood pressure elevation could likely be secondary to pain/anxiety Recommend home blood pressure monitoring before placing the patient on antihypertensives (4) CKD (chronic kidney disease), stage III: Plan: Creatinine is slightly up trended to 1.6 today Baseline creatinine of 1.2-1.3 Encourage oral hydration Continue monitor BMP (5) Asthma: Plan: No signs exacerbation Continue home inhalers and montelukast DVT Prophylaxis Lovenox SQ Full Code as per discussion with pt Follows with Dr Maravilla for routine care Please note the above document was generated using voice recognition software. It may contain grammatical, syntax or spelling errors. Any formal questions or concerns about the content, text or information contained within the body of this dictation should be directly addressed to the provider for clarification Admission and Anticipated Discharge Date Admission Date: July 13, 2023 Subjective Patient continues to report pain in her neck with radiation down her arm to first 3 fingers of left hand Vitals remained stable; no significant events overnight Review of Systems Review of Systems: All systems reviewed & are unremarkable except as noted in Subjective Physical Exam Physical Exam: Constitutional: Alert oriented x 3; not in distress. Respiratory: Bilateral vesicular breath sound. Cardiovascular: RRR, no murmur, no edema Vessels: no JVD or carotid bruit Chest: normal inspection of chest Abdomen: normal bowel sounds, soft, nontender, no hepatosplenomegaly Musculoskeletal: no cyanosis or clubbing, extremities motor strength 5/5. Neck nontender to palpation. Skin: no rashes, warm and dry normal turgor Neurologic: PERRL, EOMI, accommodation nl, no face palsy, no dysarthria CN's II- XI intact bilaterally and moves all extremities. Reports slightly decreased sensation in first 3 fingers of left hand Psychiatric: A+Ox3, euthymic affect Results & Data Results & Data Vital Signs (Past 12 Hours) Vital Signs Temp Pulse Pulse Resp BP Pulse Ox O2 Del Method 07/15/23 11:12 36.6 C 64 18 163/84 H 98 Room Air 07/15/23 07:40 36.5 C 58 L 16 153/70 H 95 Room Air 07/15/23 07:17 48 L 07/15/23 02:10 36.8 C 61 16 155/70 H 96 Room Air
--- NOTE | 2023-07-15 19:39 | Magnetic Resonance Report ---
MR cervical spine wo con HISTORY: 73 years-old Female cervical radiculopathy chronic neck pain with radicular symptoms COMPARISON: CT 07/13/2023 TECHNIQUE: Multiplanar multisequence MRI of the cervical spine was obtained without IV contrast. FINDINGS: Director Of Annual Giving localizer images demonstrate no gross extra spinal abnormality. Motion degraded exam. The image d posterior fossa structures are unremarkable. Normal signal within the brainstem, cervical and image d upper thoracic spinal cord. No acute fracture, subluxation, endplate erosion or significant marrow edema. Mild multilevel intervertebral disc space narrowing. Prevertebral tissues are normal. C2-C3: Uncovertebral hypertrophy with moderate facet arthrosis. No central canal or foraminal narrowi ng. C3-C4: Uncovertebral hypertrophy with tiny posterior disc osteophyte complex. Mild facet arthrosis. F lattening of the ventral thecal sac without significant central canal stenosis. Moderate with mild-to -moderate left foraminal narrowing. C4-C5: Uncovertebral hypertrophy with tiny posterior annular disc bulge and moderate facet arthrosis. Flattening of the ventral thecal sac without significant central canal stenosis. Severe left with mi [id number] right foraminal narrowing. C5-C6: Uncovertebral hypertrophy with tiny posterior annular disc bulge. Vkch-[id number] facet arthr osis. The central canal is patent. Severe left with moderate right foraminal narrowing. C6-C7: Moderate intervertebral disc space narrowing with uncovertebral hypertrophy. There is a left f oraminal disc protrusion versus extrusion with annular fissure, suboptimally evaluated secondary to t he motion artifact. There is resultant severe left foraminal stenosis. Mild right foraminal narrowing . Minimal adjacent deep tissue edema. Mild marrow edema of this interspace is likely degenerative/floresita ctive. C7-T1: Mild/moderate intervertebral disc space narrowing with small posterior disc osteophyte complex and moderate to severe facet arthrosis. No central canal stenosis or significant foraminal narrowing . IMPRESSION: 1. Motion degraded exam. 2. At C6-C7 there is a left foraminal annular fissure with disc protrusion versus extrusion causing s evere left foraminal stenosis. Mild adjacent deep tissue edema may represent an acute or subacute rakesh ology. 3. Additional multilevel foraminal stenosis as above. 4. No significant central canal stenosis. 5. Normal signal within the cervical spinal cord. ACT 112: Negative or not required by law. The above report was generated using voice recognition software. It may contain grammatical, syntax o r spelling errors. Electronically signed by: Glenn Navarro M.D. 07/15/2023 7:38 PM
[2023-07-16] MEDS: methylPREDNISolone 4 MG TAB PO SCH (06:27)
[2023-07-16 08:28] LABS: Creatinine Clr Calc Pharmacy 33.1 ml/min; Est GFR (African American) 45.6 ml/min; Est GFR (Non-African American) 39.4 ml/min
--- NOTE | 2023-07-16 08:42 | Pain Management Consultation ---
Date of Consultation July 16, 2023 Assessment & Plan (1) Herniation of cervical intervertebral disc with radiculopathy: (2) CKD (chronic kidney disease), stage III: Plan 1. Reviewed the patient's MRI findings with her and how it corresponds to her current symptoms. Recommend C7-T1 interlaminar epidural steroid injection at this time. Patient saw [facility] pain management at [facility] 1 time and is waiting for her lumbar epidural steroid injection on 08/01/2023. Recommend she call the office to discuss her obtaining a new follow-up visit to allow for cervical epidural steroid injection rather than a lumbar epidural steroid injection. 2. In the interim, will initiate gabapentin 100 mg p.o. twice daily and baclofen 5 mg p.o. twice daily as needed spasm. We discussed the risk benefits expectations side effects and she agrees to proceed. Order was placed. 3. Recommend gentle physical therapy post discharge. 4. Agree with completion of Medrol Dosepak to further minimize symptoms as well as judicious utilization of oxycodone. 5. Thank you for this consultation, please call with any questions. History of Present Illness Attending Physician: Ron Patel MD History of Present Illness 73-year-old female with 1-1/2-week history of left-sided cervical radiculopathy without known injury. She reports she woke from sleep and had sharp shooting stabbing pain radiating from her cervical spine to the left level of her left first second and third fingertips. She denies any right-sided symptoms. She denies any significant cervical spine surgery or prior injury or symptoms. She reports she is currently a patient of [facility] pain management having seen them 1 time and has a lumbar epidural steroid injection scheduled for 08/01/2023. She reports pain ranges between 2-5 out of 10 currently 2 out of 10. She reports significant improvement in her pain from admission due to oral steroids and oxycodone. She denies any side effects from these medications. She had a consultation with Dr. Mathews and wishes to defer surgery at this time opting for interventional pain management. She denies any discoordination of hand movements dropping of items falls fever chills bowel or bladder incontinence at this time. She is right-hand dominant. She has been utilizing oxycodone oral steroids heat, ice, stretching, some physical therapy with minimal benefit. Pain Assessment Full Body Front + Back: 2 1. 2. 3. 4. [facility] Combined Pain Scale: 3-Mild - Interferes with pleasures of life. Stops some activities Pain scale - at its best (0-10): 2 Pain scale - at its worst (0-10): 3 Allergies Allergy/AdvReac Type Severity Reaction Status Date / Time Penicillins Allergy Unknown CHILDHOOD Unverified 11/30/17 09:45 ALLERGY Home Medications Medication Instructions Recorded Confirmed Type albuterol sulfate 90 mcg/actuation 2 puff inhalation Q4H PRN 07/13/23 07/13/23 History aerosol inhaler Shortness Of Breath Or Wheezing budesonide-formoterol HFA 160 2 inh inhalation BID 07/13/23 07/13/23 History mcg-4.5 mcg/actuation aerosol inhaler (Symbicort) calcium carbonate 500 mg-vitamin 1 tab PO DAILY 07/13/23 07/13/23 History D3 10 mcg (400 unit) tablet (Calcium 500 + D) montelukast 10 mg tablet 10 mg PO DAILY 07/13/23 07/13/23 History multivitamin 1 tab PO DAILY 07/13/23 07/13/23 History acetaminophen 500 mg tablet 1,000 mg (2 x 500 mg) PO Q8H PRN 07/16/23 Rx (Tylenol Extra Strength) pain #30 tabs baclofen 5 mg tablet 5 mg PO TID PRN muscle spasm #15 07/16/23 Rx tabs gabapentin 100 mg capsule 100 mg PO BID 30 days #60 caps 07/16/23 Rx methylprednisolone 4 mg tablet See Taper PO DAILY #9 tabs 07/16/23 Rx Pain History Pain Intensity Pain scale - at its best (0-10): 2 Pain scale - at its worst (0-10): 3 Patient History Medical History (Updated 07/16/23 @ 10:58 by Lamar Alfaro DO) Herniation of cervical intervertebral disc with radiculopathy Left C6-7 Hypertension CKD (chronic kidney disease), stage III Asthma Surgical History History of colonoscopy History of tubal ligation Family History Other Cancer Social History (Reviewed 07/16/23 @ 08:41 by CASTRO Carr Smoking Status: Never smoker Hx Alcohol Use: No (quit in March) Hx Substance Use: No Preferred Language: Moldovan Communication Ability: Effective Parachute Officer Required: No Beliefs That Will Affect Care: None Current Living Situation: Spouse Other Information That Helps Us Care for You: No Feels Safe at Home: Yes Safety Concerns: Feels Safe At This Time Assistive Devices: None Physical Exam 2 Physical Exam: Constitutional: Well-developed, well-nourished, healthy-appearing, normal weight Psych: Awake, alert, and oriented 3 with normal affect and mood. Recent memory appears grossly intact, pleasant and cooperative on examination Eyes: Pupils are equally round and reactive to light with normal size pupils, eyelids appear normal Ear, nose, mouth, and throat: Moist nasal and oral membranes, lips and tongues appear normal, no external ear abnormalities are noted Neck: The trachea is midline without deviation and no thyromegaly is noted Respiratory: Normal respiratory effort without distress, no audible wheezes or rhonchi CV: Normal S1 and S2, warm distal extremities Chest: Deferred Musculoskeletal: Head is normocephalic and atraumatic, gait not observed but is easily able to move within the bed Cervical: Lordotic curve: Normal Range of motion is slightly decreased with extension, flexion, side-bending, rotation Tenderness: Mild to moderately tender over the axial midline left greater than right Facet provocation: Negative bilaterally Hoffmans maneuver: Negative bilaterally Step-off injuries: None Strength: Strength is equal bilaterally with 5 out of 5 strength in all planes Sensation of upper extremities: Intact bilaterally Deep tendon reflexes: Rated at 1+ in bilateral biceps, triceps, brachial radialis Myofascial spasm: Marked cervical paraspinal send supraspinatus spasm. Multiple discrete trigger points noted Thoracic: Kyphotic curve: Normal Range of motion is normal with extension, flexion, side-bending, rotation Lumbar: Lordotic curve: Loss of lumbar lordosis Range of motion is reduced with extension, flexion, side-bending, rotation Straight leg raise: Negative bilaterally Strength: Strength is grossly equal bilaterally with 5 out of 5 strength in all planes Sensation of lower extremities: Intact bilaterally Deep tendon reflexes: Rated at 1+ in bilateral L4 and S1 Pathologic reflexes noted: None Skin: No rashes, lesions, ulcers, or induration noted Neuro: No nystagmus noted, the tongue is midline, the patient is able to rotate their head bilaterally : Deferred Results (Pain Clinic) Diagnostic Review MRI: non enhanced, reports reviewed, images reviewed and findings discussed with patient MRI Findings: 07/15/23 MR cervical spine wo con HISTORY: 73 years-old Female cervical radiculopathy chronic neck pain with radicular symptoms COMPARISON: CT 07/13/2023 TECHNIQUE: Multiplanar multisequence MRI of the cervical spine was obtained without IV contrast. FINDINGS: White Sourer localizer images demonstrate no gross extra spinal abnormality. Motion degraded exam. The imaged posterior fossa structures are unremarkable. Normal signal within the brainstem, cervical and imaged upper thoracic spinal cord. No acute fracture, subluxation, endplate erosion or significant marrow edema. Mild multilevel intervertebral disc space narrowing. Prevertebral tissues are normal. C2-C3: Uncovertebral hypertrophy with moderate facet arthrosis. No central canal or foraminal narrowing. C3-C4: Uncovertebral hypertrophy with tiny posterior disc osteophyte complex. Mild facet arthrosis. Flattening of the ventral thecal sac without significant central canal stenosis. Moderate with [id number] left foraminal narrowing. C4-C5: Uncovertebral hypertrophy with tiny posterior annular disc bulge and moderate facet arthrosis. Flattening of the ventral thecal sac without significant central canal stenosis. Severe left with [id number] right foraminal narrowing. C5-C6: Uncovertebral hypertrophy with tiny posterior annular disc bulge. [id number]-tn-[id number] facet arthrosis. The central canal is patent. Severe left with moderate right foraminal narrowing. C6-C7: Moderate intervertebral disc space narrowing with uncovertebral hypertrophy. There is a left foraminal disc protrusion versus extrusion with annular fissure, suboptimally evaluated secondary to the motion artifact. There is resultant severe left foraminal stenosis. Mild right foraminal narrowing. Minimal adjacent deep tissue edema. Mild marrow edema of this interspace is likely degenerative/reactive. C7-T1: Mild/moderate intervertebral disc space narrowing with small posterior disc osteophyte complex and moderate to severe facet arthrosis. No central canal stenosis or significant foraminal narrowing. IMPRESSION: 1. Motion degraded exam. 2. At C6-C7 there is a left foraminal annular fissure with disc protrusion versus extrusion causing severe left foraminal stenosis. Mild adjacent deep tissue edema may represent an acute or subacute etiology. 3. Additional multilevel foraminal stenosis as above. 4. No significant central canal stenosis. 5. Normal signal within the cervical spinal cord. CT: non enhanced and reports reviewed CT Findings: 07/13/23 CT cervical spine wo con CT DOSE: 413.68 mGy.cm CLINICAL HISTORY: 73 years-old Female with neck pain. Acute neck pain without reported trauma COMPARISON: None. TECHNIQUE: Multiple axial CT images of the cervical spine were obtained without contrast. A dose lowering technique was utilized adhering to the principles of ALARA. FINDINGS: Limited evaluation of the central canal and neural foramina by CT technique. No high-grade central canal stenosis. Degenerative changes include mild to moderate disc space narrowing at C6-C7. 4 mm anterolisthesis C7 on T1, likely secondary to severe facet arthrosis at this level. Moderate to severe degeneration at C1-C2. No acute fracture or subluxation. Multilevel neural foraminal narrowing is at least mild. The cervical soft tissues appear unremarkable. Biapical pleural-parenchymal scarring. No pneumothorax. IMPRESSION: No acute cervical spine fracture or subluxation.
[2023-07-16] MEDS ORDERED: BACLOFEN 10 MG TAB PO PRN (08:45)
[2023-07-16] MEDS: GABAPENTIN 100 MG CAP PO SCH (09:30)
--- NOTE | 2023-07-16 15:57 | Discharge Summary ---
Date of Service July 16, 2023 Admission HPI Per Admitting Provider Patient is 73-year-old female with PMH asthma, CKD III, lumbar spinal stenosis presented to ER with complaint of left arm pain x 6 days. States woke up Sunday with pain to left shoulder radiating to left arm. The following day symptoms mostly resolved. States Sunday did strength training and walked eight miles and pain returned and has worsened past 4 days. Reports pain to left posterior neck and radiates to left shoulder, left arm and left fingers. Also with paresthesias radiating down left arm into 2nd and 3rd fingers. Denies any pain to chest or SOB. Denies history fall or known trauma. History lumbar radic ulopathy, spinal stenosis and had Lumbar MRI spine and saw neurosurgery who recommended conservative measures initially with PT, and had appointment with pain management and is to have lumbar steroid injection 08/01/23. She reports her lumbar back pain has almost resolved and is not currently bothering her. Denies fever/chills, diaphoresis, N/V/D/C, DOWELL, dizziness, syncope, vision changes, CP, SOB, orthopnea, palpitations, cough, sore throat, otalgia, rhinorrhea, abdominal pain, extremity weakness, extremity edema, rashes, urinary symptoms. Admission Exam Per Admitting Provider General: no distress, WDWN Head: normocephalic, atraumatic Eyes: conjunctiva non-injected, anicteric ENT: normal inspection external ears, nose, mucous membranes moist Neck: supple, trachea midline, No current tenderness to palpation, patient points to lower cervical spinous processes and trapezius musculature at site of prior pain Lungs: clear, no respiratory distress, no wheezing/rhonchi/rales CV: RRR, no murmur, no JVD, no pretibial edema Abd: normal BS, soft, non-tender Ext: no cyanosis, no calf tenderness, LUE: normal appearance, non-tender to palpation, ROM intact, distal pulses intact, brisk capillary refill, sensation to light touch intact, strength 5/5 Neuro: A&O x 3, no focal deficits noted, normal affect Skin: warm, dry Principal Diagnosis Herniation of cervical intervertebral disc with radiculopathy: Discharge Exam Constitutional: Alert oriented x 3; not in distress. Respiratory: Bilateral vesicular breath sound. Cardiovascular: RRR, no murmur, no edema Vessels: no JVD or carotid bruit Chest: normal inspection of chest Abdomen: normal bowel sounds, soft, nontender, no hepatosplenomegaly Musculoskeletal: no cyanosis or clubbing, extremities motor strength 5/5. Neck nontender to palpation. Skin: no rashes, warm and dry normal turgor Neurologic: PERRL, EOMI, accommodation nl, no face palsy, no dysarthria CN's II- XI intact bilaterally and moves all extremities. Reports slightly decreased sensation in first 3 fingers of left hand Psychiatric: A+Ox3, euthymic affect Discharge Data Allergies Allergy/AdvReac Type Severity Reaction Status Date / Time Penicillins Allergy Unknown CHILDHOOD Unverified 11/30/17 09:45 ALLERGY Consultations 07/13/23 12:21 ED Decision to Admit Stat 07/15/23 09:02 Consult Orthopedic Spine Surgery Routine 07/16/23 07:32 Consult Pain Management Routine 07/16/23 08:00 Consult Pain Management Routine Ordered Studies 07/13/23 10:53 CT cervical spine wo con Stat 07/15/23 09:02 MRI Cervical [MR cervical spine wo con] Routine Hospital Course (1) Neck pain: (2) Radicular pain of left upper extremity: Patient is 73-year-old female with PMH asthma, CKD III, lumbar spinal stenosis presented to ER with complaint of neck pain radiating to left arm for several days. C-Spine CT: No high-grade central canal stenosis. Degenerative changes include mild to moderate disc space narrowing at C6-C7. 4 mm anterolisthesis C7 on T1, likely secondary to severe facet arthrosis at this level. Moderate to severe degeneration at C1-C2. No acute fracture or subluxation. Multilevel neural foraminal narrowing is at least mild. CXR: no acute infiltrate EKG without acute ST elevations. Normal troponin. During the hospitalization, patient was admitted to medical floor. Was started on analgesics. MRI cervical spine reviewed by orthospine; disc herniation with neuroforaminal disease C6-C7 on the left. Recommend interventional pain management at this point. Might require procedure if the injection did not provide relief. Patient was treated with Medrol Dosepak. Pain management was consulted; recommended gabapentin and baclofen for symptom control Patient to follow-up with PCP, pain management and possible ortho-spine as outpatient. (3) Elevated blood pressure reading: Blood pressure elevated on admission No prior diagnosis HTN Likely secondary to underlying pain/anxiety Continue to monitor blood pressure Recommended home blood pressure monitoring. Blood pressure elevation could likely be secondary to pain/anxiety Recommend home blood pressure monitoring before placing the patient on antihypertensives (4) CKD (chronic kidney disease), stage III: Creatinine remained at baseline at the time of discharge Plan Please note the above document was generated using voice recognition software. It may contain grammatical, syntax or spelling errors. Any formal questions or concerns about the content, text or information contained within the body of this dictation should be directly addressed to the provider for clarification Total Time Total Time Spent Total Time Spent (In Minutes): 35 Total Time Includes: Examination of the Patient, Discharge Planning, Medication Reconciliation, Communication With Other Providers and Other Discharge Plan Discharge Items Patient Disposition: Home - Self-Care Reason For Visit: arm pain, htn Discharge Diagnosis: Herniation of cervical intervertebral disc with radiculopathy Activity: Resume your previous activity Non-emergency contact: Primary Care Provider Call non-emergency contact if: you have any medication questions and your symptoms worsen Follow-up/Referrals: Saida Maravilla MD [Primary Care Provider] - 07/20/23 11:00 am (Date & Time 07/20/2023 11:00 AM Provider Palmira Silver MD Department General Internal Medicine [facility] ) Diet: Regular Addtl Attending Provider Instructions: You were admitted to the hospital due to neck pain. You underwent CT scan and MRI of the neck. It shows disc herniation at C6-C7 level. This has caused a nerve pinch which resulted in pain in your arm and fingers. You are prescribed following medications; A) Methylprednisolone 4 mg; 3 times a day for 2 days, then, 2 times a day for 1 day and 1 time a day for 1 day. B) gabapentin 100 mg twice a day. You are prescribed for 1 month supply. If you experience improvement in pain you can decrease the frequency to just to once a day at night. c) Baclofen 5 mg as needed 3 times a day for muscle spasm. Try to minimize the dose of baclofen as it can cause confusion. If you do not experience any spasms; you do not need to take it Take Tylenol as needed for pain You have an appointment set up with your primary care doctor. Please follow-up with her. Please coordinate with her regarding follow-up with pain management clinic. You were seen by Dr. Christopher Mathews ([facility], [address] [place] [address], [place] [address]) during the hospitalization. Please make an appointment with him if you decide to know more about the surgical intervention. Pending Studies at Discharge: No Stand-Alone Forms: [facility], Smoking Cessation Medications and DC Order Prescriptions: New acetaminophen [Tylenol Extra Strength] 500 mg Tablet 1,000 mg PO Q8H PRN (Reason: pain) Qty: 30 0RF methylprednisolone 4 mg Tablet See Taper PO DAILY Qty: 9 0RF Taper: Taper, Blank 4 mg THREE TIMES A DAY for 2 Days 4 mg TWICE A DAY for 1 Day 4 mg DAILY for 1 Day gabapentin 100 mg Capsule 100 mg PO BID 30 Days Qty: 60 0RF baclofen 5 mg tablet 5 mg PO TID PRN (Reason: muscle spasm) Qty: 15 0RF Continued montelukast 10 mg tablet 10 mg PO DAILY albuterol sulfate 90 mcg/actuation HFA aerosol inhaler 2 puff INHALATION Q4H PRN (Reason: Shortness Of Breath Or Wheezing) budesonide-formoterol [Symbicort] 160-4.5 mcg/actuation HFA aerosol inhaler 2 inh INHALATION BID multivitamin Tablet 1 tab PO DAILY calcium carbonate-vitamin D3 [Calcium 500 + D] 500 mg-10 mcg (400 unit) Tablet 1 tab PO DAILY Discharge Orders: Discharge Order (Routine); Ordered 07/16/23 Ordered By: Ron Patel Admission Data Admit Date/Time: 07/15/23 12:39 Attending Provider: Ron Patel Admit Provider: Po Chino Primary Care Provider: Saida Maravilla Other Providers: Po Chino; Harrison Mathews; Charlie Jung Other Interventions: Discharge Summary Assessment (RN) Last Done: 07/16/23 13:28
[2023-07-17] MEDS ORDERED: methylPREDNISolone 4 MG TAB PO SCH (07:00)
[2023-07-18] MEDS ORDERED: methylPREDNISolone 4 MG TAB PO SCH (07:00)
[2023-07-19] MEDS ORDERED: methylPREDNISolone 4 MG TAB PO SCH (07:00)
== END 2023-07-16 13:49 | disposition home or self-care (01) | DRG 552 ==
LOC: ED 10:11 → 2W 10:11 → SUATTDRO 13:17 → 2W 13:55 → 3W 07-15 21:55